=== PATIENT | male | born 1955 | race African-American/Black ===

== ENCOUNTER 2022-11-28 15:01 | Emergency (ER) | payer MEDICARE, SELFPAY ==
[2022-11-28 16:03] VITALS: BP 149/94; PULSE 97; RESP 16; TEMP 37; O2SAT 97
[2022-11-28 16:15] LABS: Glucose Point of Care 425 mg/dl (65-105)
[2022-11-28 16:23] LABS: Fractional Inspired Oxygen 21 %; HCO3 VBG 21.3 mEq/l (24.0-30.0); PCO2 VBG 35.3 mmHg (42.0-48.0); PO2 VBG 41.7 mmHg (35.0-45.0); pH VBG 7.399 (7.300-7.400)
[2022-11-28 16:40] LABS: Basophils Absolute Auto 0.1 K/mm3 (0.0-0.1); Basophils Percent Auto 0.7 % (0.2-1.2); Eosinophils Percent Auto 0.6 % (0-4.4); Hematocrit 49.5 % (42.0-52.0); Hemoglobin 16.5 g/dL (14.0-18.0); Immature Granulocyte Absolute 0.03 K/mm3 (0.00-0.031); Immature Granulocyte Percent A 0.4 % (0-0.5); Lymphocytes Absolute Auto 1.89 K/mm3 (0.9-3.2); Lymphocytes Percent Auto 27.8 % (18.3-44.2); Mean Corpuscular HGB Conc 33.3 g/dl (32-36); Mean Corpuscular Hemoglobin 28.5 pg (26-34); Mean Corpuscular Volume 85.5 fl (80-100); Monocytes Absolute Auto 0.7 K/mm3 (0.1-0.6); Monocytes Percent Auto 10.6 % (2.6-8.5); Neutrophils Absolute Auto 4.1 K/mm3 (1.3-6.7); Neutrophils Percent Auto 59.9 % (45.5-73.1); Platelet Count Result 268 k/mm3 (150-375); Red Blood Count 5.79 M/mm3 (4.6-6.20); Red Cell Distribution Width 13.3 % (11.5-14.5); White Blood Count 6.8 K/mm3 (4.5-10.0)
[2022-11-28 16:44] LABS: Alanine Aminotransferase 40 U/L (6-50); Albumin Level 4.6 g/dL (3.5-5.1); Alkaline Phosphatase 103 U/L (38-126); Anion Gap 12 mmol/L (8-16); Aspartate Amino Transferase 28 U/L (17-59); Bilirubin,Total 0.8 mg/dL (0.2-1.3); Blood Urea Nitrogen 16 mg/dL (9-20); Calcium 9.2 mg/dL (8.4-10.2); Carbon Dioxide 21 mmol/L (22-30); Chloride 100 mmol/L (98-107); Estimated CRCL calculation 108 ml/min; Estimated Glomerular Filt Rate > 60; Glucose 402 mg/dL (65-110); Magnesium 2.1 mg/dL (1.6-2.3); Phosphorus 3.2 mg/dL (2.5-4.5); Sodium 133 mmol/L (137-145)
[2022-11-28 16:51] LABS: Beta-Hydroxybutyrate/Acetoacetate 2.59 mmol/L (0.02-0.27)
[2022-11-28 17:44] LABS: Add Urine Microscopic? YES; Appearance Urine Clear (Clear); Bilirubin Urine Negative (Negative); Blood Urine Negative (Negative); Color Urine Yellow (Yellow); Glucose Urine UA 3+ mg/dL (Negative); Ketones Urine 2+ mg/dL (Negative); Leukocyte Esterase Ur Negative LEU/UL (Negative); Nitrate Urine Negative (Negative); Protein Urine Negative (Negative); Specific Grav Ur 1.025 (1.001-1.035); Urobilinogen Urine 0.2 mg/dL (<2.0); pH Urine 5.5 (5.0-9.0)
[2022-11-28 17:54] LABS: Mucus Urine Rare /lpf; RBC Urine 0-2 /hpf (0-2); Squamous Epithelial Cell Urine Few /hpf (Few); WBC Urine 0-3 /hpf
[2022-11-28 18:22] VITALS: BP 130/95; PULSE 93; RESP 20; TEMP 36.6; O2SAT 96
[2022-11-28 19:17] VITALS: BP 126/91; PULSE 94; RESP 15; O2SAT 96
[2022-11-28] MEDS: SODIUM CHLORIDE 0.9% IV 2,000 ML 999 ML IV CONT (20:11)
--- NOTE | 2022-11-28 20:11 | ED.RECABL ---
HPI - Recheck/Abnormal Lab/Rx General Chief Complaint: Recheck/Abnormal Lab/Rx Stated Complaint: increased blood sugar Time Seen by Provider: 11/28/22 19:19 History of Present Illness HPI narrative: This is a 66-year-old gentleman with past medical history of hypertension, sent in from his primary care doctor's office for a blood glucose in the 500s. The patient states over the past several weeks, he is noted generalized fatigue with increased urination. He denies fevers, chills, focal weakness, chest pain or shortness of breath. He states he had plan for starting injectable medications but was not yet started Related Data Allergies Allergy/AdvReac Type Severity Reaction Status Date / Time No Known Allergies Allergy Mild Unverified 07/12/19 07:38 Review of Systems Review of Systems: CONSTITUTIONAL: Fatigue denies fever, chills, or sweats. EYES: Intermittent blurred vision denies visual changes, redness, or discharge. ENT: Denies rhinorrhea, congestion, sore throat, or otalgia. CARDIOVASCULAR: Denies chest pain, palpitations, or edema. RESPIRATORY: Denies cough or dyspnea. GASTROINTESTINAL: Denies abdominal pain, nausea, vomiting, or diarrhea. GENITOURINARY: Denies dysuria or hematuria. SKIN: Denies rash or itching. MUSCULOSKELETAL: Denies back pain, joint pain, or myalgia. NEUROLOGIC: Denies headache, numbness, dizziness, or weakness. PSYCHIATRIC: Denies anxiety or depression. [facility] Past Medical History Medical History (Updated 11/29/22 @ 00:01 by Suellen Llanos) Hypertension Social History Social History (Updated 11/28/22 @ 20:13 by Ponce Matias MD) Smoking status: Never smoker Alcohol intake: never Substance use: never Exam Narrative: GENERAL: Well-appearing, well-nourished, and in no acute distress. HEAD: Normocephalic, atraumatic. EYES: PERRLA and EOMI. ENT: Nares clear, no rhinorrhea or epistaxis. Mucous membranes moist. Oropharynx without tonsillar hypertrophy exudate or other lesions. NECK: Supple. No adenopathy or masses. No carotid bruits or JVD CHEST: Clear to auscultation. No respiratory distress. No wheezes rales or rhonchi HEART: Regular rate and rhythm. No murmur heard. Normal peripheral pulses. ABDOMEN: Soft, nontender, nondistended, normal active bowel sounds. EXTREMITIES: Normal range of motion. No edema. SKIN: Warm, dry, no rash. NEURO: No focal deficits. Alert and oriented x3. PSYCH: Normal mood and affect. Course Course Emergency Course: 20:00 - Discussed patient with his primary care doctor, Dr. Chung who agrees with IV fluids, possible IV insulin and discharged with 10 days of oral medications. 21:41 -repeat fingerstick glucose decreased to 313 after 1 L of fluids. Will give a second and discharged with metformin. Discussed findings and recommendations with the patient as well as return emergent cautions including signs/symptoms of DKA and hypoglycemia. Patient voiced understanding and is comfortable with the plan. All questions answered to his satisfaction Vital Signs Vital signs: Vital Signs Temperature 98.6 F 11/28/22 16:03 Pulse Rate 97 11/28/22 16:03 Respiratory Rate 16 11/28/22 16:03 Blood Pressure 149/94 H 11/28/22 16:03 Pulse Oximetry 97 11/28/22 16:03 Temperature 97.9 F 11/28/22 18:22 Pulse Rate 86 11/28/22 22:25 Respiratory Rate 16 11/28/22 22:25 Blood Pressure 139/106 H 11/28/22 22:25 Pulse Oximetry 97 11/28/22 22:25 Oxygen Delivery Room Air 11/28/22 19:17 MDM - Recheck/Abnormal Lab/Rx MDM Narrative Medical decision making narrative: Plan: Labs, IV fluids, reassess Differential Diagnosis Differential diagnosis: Likely other (Hyperglycemia, DKA, UTI, metabolic abnormality, other) Lab Data 11/28/22 16:13 11/28/22 16:13 Labs: Lab Results 11/28/22 11/28/22 11/28/22 Range/Units 16:08 16:13 16:13 WBC 6.8 (4.5-10.0) K/mm3 RBC 5.79 (4.6-6.20) M/mm3 Hgb 16.5 (
[2022-11-28 20:13] VITALS: BP 143/106; PULSE 87; RESP 19; O2SAT 96
[2022-11-28 21:21] LABS: Glucose Point of Care 313 mg/dl (65-105)
[2022-11-28 22:11] LABS: Glucose Point of Care 298 mg/dl (65-105)
[2022-11-28 22:25] VITALS: BP 139/106; PULSE 86; RESP 16; O2SAT 97
== END 2022-11-28 22:25 | disposition home or self-care (01) ==
PROVIDERS: Emergency Medicine; Emergency Provider Preventive Medicine Aerospace Medicine; PCP Internal Medicine
DX: E11.65 Type 2 diabetes mellitus with hyperglycemia (principal)
CPT/HCPCS: 36415; 80053; 81001; 82010; 82803; 82948; 83735; 84100; 85025; 96360; 96361; 99283; J7030

== ENCOUNTER 2024-06-29 09:03 | Outpatient (CLI) | payer MEDICARE, SELFPAY ==
--- NOTE | 2024-07-08 20:31 | WPDHOMESLEEP ---
Sleep Study - Home Unattended Date of Study: 06/29/24 Ordering Provider: Hung Chung, Interpreting Provider: Alexa Graff MD Home Sleep Study Type: Watch PAT Height: 1.8 m Weight: 127.913 kg Body Mass Index: 39.3 Neck Circumference (inches): 18.5 [place]urn: 5 Reason for Sleep Study Snoring, non-refreshing sleep, daytime fatigue and excessive daytime sleepiness Sleep History Regino Stephenson is a 68-year old man with hypertension, hyperlipidemia, and diabetes; he snores loudly according to his . He falls asleep easily during the day. He has no anxiety or depression. He has moderately difficulty falling asleep and severe difficulty staying asleep. He wakes up too early in the morning. He is very dissatisfied with his current sleep pattern. His excessive daytime sleepiness interferes with his daytime functioning. He worries somewhat about his poor quality sleep. He is a nonsmoker, drinks 1 glass of alcohol 1 or 2 nights out of the week. He consumes 1-2 caffeinated beverages a day. He is tired, fatigued, and sleepy during the day. His sleep is not refreshing and he is tired when he wakes up. He does not feel drowsy while driving although he does have the urge to fall asleep during the day. He does not have uncomfortable feelings in his legs or the urge to move his legs in the evening. Normal bedtime is 11:30 p.m., falls asleep within 30 minutes, spends 9 hours in bed but only 5-1/2 hours of sleep. On weekends bedtime is the same, 11:30 p.m. with a 30 minute sleep latency. He also spends 9 hours in bed and about 6 hours sleeping. He does not nap. His sleep is never restorative. He often has 3 or more nighttime awakenings to go to the bathroom. [facility] Past Medical History Medical History (Updated 07/08/24 @ 21:26 by Alexa Graff MD) Hyperlipidemia Hypertension Type 2 diabetes mellitus with morbid obesity Surgical History Surgical History (Updated 07/08/24 @ 21:21 by Alexa Graff MD) History of hernia repair Family History Family History (Updated 07/08/24 @ 21:28 by Alexa Graff MD) Sibling Diabetes mellitus Kidney disorder Social History Social History (Updated 07/08/24 @ 21:20 by Alexa Graff MD) Smoking status: Never smoker Alcohol intake: current Alcohol use details: 1-2 per week Substance use: never Medications Home Medications Medication Instructions Recorded Confirmed Type blood-glucose meter #1 ea 11/28/22 Rx metformin 500 mg tablet 500 mg PO BID #20 tabs 11/28/22 Rx Medications: Medication list from his office appointment 06/07/2024 Amlodipine 10 mg benazepril 40 mg daily Atorvastatin 10 mg daily Coreg 3.125 mg b.i.d. Hydrochlorothiazide 25 mg b.i.d. Metformin a 1000 mg b.i.d. Ozempic 0.25 mg or 0.5mg sub-cutaneous injector Testosterone cypionate 200 mg/mLl intramuscular, 300 mg every 2 weeks Sleep Procedure The sleep study was completed using SalsifyT a technically adequate device with seven channels: peripheral arterial tone, actigraphy, body position, snore, respiratory movement, pulse oximetry, sleep staging, and heart rate. Prior to using the device, the patient received verbal and written instructions for its application and was provided with the help desk phone number for additional telephonic instruction with 24-hour availability of qualified personnel to answer questions. Sleep Architecture The total recording time is 7 hrs, 47 min. The total sleep time is 7 hrs, 3 min. Sleep latency is 17 minutes. REM latency is 58 minutes. The patient had 18 episodes of waking. Sleep architecture shows 6.0% deep sleep, 79.3% light sleep, and 14.6% stage REM. The patient spent 10.7% of total sleep time in the supine position. Sleep efficiency was 90.58. Respiratory Analysis The overall AHI (pAHI 4%:) is 70.7. The central AHI is 25.6. The AHI was 70.8 in NREM and 70.2 in REM sleep. The AHI was 67.4 in Supine and 71.1 in Non-supine sleep. Percent of Miriam
[2024-07-08 21:12] VITALS: BMI 39.3
== END 2024-07-01 14:31 | disposition home or self-care (01) ==
PROVIDERS: PCP Internal Medicine; Visit Provider Internal Medicine
DX: G47.9 Sleep disorder, unspecified (principal); G47.39 Other sleep apnea
CPT/HCPCS: 95800

== ENCOUNTER 2024-07-22 08:39 | Outpatient (CLI) | payer MEDICARE, SELFPAY ==
--- NOTE | 2024-08-18 15:55 | WPDSLEEPSTUD ---
Sleep Study Date of Study: 07/22/24 Ordering Provider: Hung Chung, Interpreting Physician: Nury Serrato DO Sleep Study Type: CPAP Titration Height: 21.64 m Weight: 127.913 kg Body Mass Index: 0.2 Neck Circumference (inches): 18.5 Keeler: 5 Reason for Sleep Study WatchPAT home sleep test on 06/29/2024 showed an overall AHI of 70.7, ALO of 25.6 and DRIP MOLDER 29.5% of the night. Sleep History Regino Stephenson is a 68-year old man with hypertension, hyperlipidemia, and diabetes; he snores loudly according to his . He falls asleep easily during the day. He has no anxiety or depression. He has moderately difficulty falling asleep and severe difficulty staying asleep. He wakes up too early in the morning. He is very dissatisfied with his current sleep pattern. His excessive daytime sleepiness interferes with his daytime functioning. He worries somewhat about his poor quality sleep. He is a nonsmoker, drinks 1 glass of alcohol 1 or 2 nights out of the week. He consumes 1-2 caffeinated beverages a day. He is tired, fatigued, and sleepy during the day. His sleep is not refreshing and he is tired when he wakes up. He does not feel drowsy while driving although he does have the urge to fall asleep during the day. He does not have uncomfortable feelings in his legs or the urge to move his legs in the evening. Normal bedtime is 11:30 p.m., falls asleep within 30 minutes, spends 9 hours in bed but only 5-1/2 hours of sleep. On weekends bedtime is the same, 11:30 p.m. with a 30 minute sleep latency. He also spends 9 hours in bed and about 6 hours sleeping. He does not nap. His sleep is never restorative. He often has 3 or more nighttime awakenings to go to the bathroom. [facility] Past Medical History Medical History Hyperlipidemia Hypertension Type 2 diabetes mellitus with morbid obesity Surgical History Surgical History History of hernia repair Family History Family History Sibling Diabetes mellitus Kidney disorder Social History Social History Smoking status: Never smoker Alcohol intake: current Alcohol use details: 1-2 per week Substance use: never Spiritual care concerns: No Medications Home Medications Medication Instructions Recorded Confirmed Type blood-glucose meter #1 ea 11/28/22 Rx metformin 500 mg tablet 500 mg PO BID #20 tabs 11/28/22 Rx Sleep Procedure A full night polysomnogram using the BucketFeet multi-channel system recorded the standard physiologic parameters including EEG, EOG, submentalis EMG, anterior tibialis EMG, EKG, body position, nasal and oral airflow using PAP device flow signal.? Respiratory parameters of chest and abdominal movements were recorded with Respiratory Inductance Plethysmography belts. Oxygen saturation was recorded by pulse oximetry. Video monitoring was also performed. Sleep stages, periodic limb movements, and EEG arousals were scored in 30 second epochs according to the criteria of the AASM Scoring Manual. The Apnea-Hypopnea Index was calculated using CMS guidelines for definition of hypopnea with 4% O2 desaturations while scoring respiratory events. Sleep Architecture The total recording time was 514.2 minutes.? The total sleep time was 214.0 minutes. Sleep latency was 26.5 minutes. REM latency was 81.0 minutes. Sleep efficiency was 41.6%. The patient had 43 awakenings for an awakening index of 12.1. Wake after Sleep Onset time was 274.0 minutes. The patient spent 31.5 minutes, 14.7% of total sleep time in Stage N1. The patient spent 153.5 minutes, 71.7% in Stage N2. The patient spent 0.0 minutes, 0.0% in Stage N3. The patient spent 29.0 minutes, 13.6% in Stage REM. Respiratory Analysis The patient had 10 hypopneas, 5
== END 2024-07-23 07:29 | disposition home or self-care (01) ==
LOC: ANHCSM 08:40
PROVIDERS: PCP Internal Medicine; Visit Provider Internal Medicine
DX: G47.33 Obstructive sleep apnea (adult) (pediatric) (principal)
CPT/HCPCS: 95811

== ENCOUNTER 2024-09-16 08:19 | Outpatient (CLI) | payer MEDICARE, SELFPAY ==
--- NOTE | 2024-09-16 | ECHO_ITS ---
Patient Info Name: Regino Stephenson Age: 68 years : 1955 Gender: Male Ht: 71 in Wt: 290 lbs BSA: 2.62 m2 HR: 59 bpm BP: 148 / 108 mmHg Heart Rhythm: Sinus Rhythm Technical Quality: Fair Exam Date: 09/16/2024 9:22 AM Exam Location: Echo Lab Patient Status: Outpatient Admit Date: 09/16/2024 Staff Ordering Physician: SheldonHung MD Test Car Driver: Turner Boateng RDCS Attending Provider: CarissaHung MD Exam Type: CA echo doppler color flow Study Info Indications I10 - Essential (primary) hypertension Complete two-dimensional, color flow and Doppler transthoracic echocardiogram is performed. Summary 1. Left ventricular chamber dimension is normal. 2. Left ventricular systolic function is normal, estimated at 60-65%. 3. There is mildly increased left ventricular wall thickness. 4. The left ventricular diastolic function is grade I diastolic dysfunction. 5. Right ventricular systolic function is normal. 6. There is mild mitral valve regurgitation. 7. There is mild tricuspid valve regurgitation. Left Ventricle Left ventricular chamber dimension is normal. Left ventricular systolic function is normal, estimated at 60-65%. There is mildly increased left ventricular wall thickness. The left ventricular diastolic function is grade I diastolic dysfunction. Right Ventricle Right ventricular chamber dimension is normal. Right ventricular systolic function is normal. Left Atria Left atrial chamber dimension is normal. Right Atria Right atrial chamber dimension is normal. Atrial Septum Intact interatrial septum visualized by color flow imaging. Aortic Valve The aortic valve is trileaflet. There is mild aortic valve sclerosis. There is no aortic valve stenosis. There is no aortic valve regurgitation. Pulmonic Valve The pulmonic valve is not well visualized. There is no pulmonic regurgitation. Mitral Valve There is mild mitral valve regurgitation. Tricuspid Valve There is mild tricuspid valve regurgitation. Pericardium/Pleural The pericardium appears epicardial fat pad. There is no pericardial effusion. Inferior Vena Cava Normal inferior vena cava with >50% collapse upon inspiration consistent with normal right atrial pressure, 3 mmHg. Aorta The aortic root size at the sinus of Valsalva is normal. Left Ventricular Outflow Tract Name Value Normal LVOT 2D LVOT Diameter 2.1 cm LVOT Doppler LVOT Peak Gradient 5 mmHg LVOT Mean Gradient 2 mmHg LVOT VTI 19 cm LVOT VTI/AV VTI Ratio 1.1 LVOT Stroke Volume 66 ml LVOT CO 4.8 l/min LVOT CI 1.8 l/min/m2 Pulmonic Valve Name Value Normal PV Doppler PV Peak Gradient 3 mmHg Mitral Valve Name Value Normal MV Doppler MV Decel [place] 232 cm/s2 MV PHT 69 ms MV Area (PHT) 3.2 cm2 4.0-5.0 MV Diastolic Function MV E Peak Velocity 55 cm/s MV A Peak Velocity 86 cm/s MV E/A 0.6 MV Decel Time 237 ms Tricuspid Valve Name Value Normal TV Regurgitation Doppler TR Peak Velocity 238 cm/s TR Peak Gradient 23 mmHg Estimated PAP/RSVP RA Pressure 3 mmHg <=5 PA Systolic Pressure 26 mmHg <36 RV Systolic Pressure 26 mmHg <36 Aorta Name Value Normal Ascending Aorta Ao Root Diameter (MM) 3.6 cm Ao Root Diam Index (MM) 1.4 cm/m2 Aortic Valve Name Value Normal AV Doppler AV Peak Velocity 104 cm/s AV Peak Gradient 4 mmHg AV Mean Gradient 2 mmHg AV VTI 17 cm AV Area (Cont Eq VTI) 3.8 cm2 >=3.0 AV Area (Cont Eq Jean Paul) 3.8 cm2 AV Regurgitation 2D LVOT Area 3.6 cm2 Ventricles Name Value Normal LV Dimensions 2D/MM IVS Diastolic Thickness (2D) 1.1 cm 0.6-1.0 IVS Diastole Thickness (MM) 1.0 cm 0.6-1.0 LVID Diastole (2D) 4.8 cm 4.2-5.8 LVID Diastole (MM) 5.3 cm 4.2-5.8 LVIW Diastolic Thickness (2D) 1.0 cm 0.6-1.0 LVIW Diastolic Thickness (MM) 1.1 cm 0.6-1.0 LVID Systole (2D) 2.8 cm 2.5-4.0 LVID Systole (MM) 3.3 cm 2.5-4.0 LVOT Diameter 2.1 cm LV Mass (2D Cubed) 181.38 g 88.00-224.00 LV Mass Index (2D Cubed) 69 g/m2 49-115 Relative Wall Thickness (2D) 0.44 LV Mass (MM Cubed) 216.34 g 88.00-224.00 LV Mass Index (MM Cubed) 82 g/m2 49-115 Relative Wall Thickness (MM) 0.42 LV Fractional Shortening/Ejection Fraction 2D/MM LV Fractional Shortening (2D) 41 % 25-43 LV Fractional Shortening (MM) 37 % 25-43 LV EF (MM Teicholz) 67 % 52-72 LV EF (2D Teicholz) 72 % 52-72 LV Diastolic Volume (4C MOD) 93 ml LV EF (4C MOD) 73 % LV Diastolic Volume (2C MOD) 90 ml LV EF (2C MOD) 72 % LV Diastolic Volume (BP MOD) 92 ml 62-150 LV Diastolic Volume Index (BP MOD) 35 ml/m2 34-74 LV Systolic Volume (BP MOD) 25 ml 21-61 LV Systolic Volume Index (BP MOD) 10 ml/m2 11-31 LV EF (BP MOD) 73 % 52-72 LV Diastolic Length (4C) 9.6 cm LV Systolic Length (4C) 8.2 cm LV Stroke Volume (4C MOD) 68 ml Atria Name Value Normal LA Dimensions LA Dimension (MM) 4.2 cm 3.0-4.1 LA Volume (4C A-L) 39 ml LA Volume (BP A-L) 54 ml RA Dimensions RA Area (4C) 14.0 cm2 <=18.0 Report Signatures
== END 2024-09-16 08:20 | disposition home or self-care (01) ==
LOC: ANHCARD 08:21
PROVIDERS: PCP Internal Medicine; Visit Provider Internal Medicine
DX: I11.9 Hypertensive heart disease without heart failure (principal); I08.1 Rheumatic disorders of both mitral and tricuspid valves
CPT/HCPCS: 93306

== ENCOUNTER 2024-11-02 09:30 | Outpatient (RCR) | payer MEDICARE, SELFPAY ==
[2024-08-10 11:00] VITALS: BMI 40.3
[2024-08-10 11:26] VITALS: BMI 40.3
[2024-09-07 09:30] VITALS: BMI 40.3
[2024-10-06 09:30] VITALS: BMI 39.9
[2024-10-06 09:31] VITALS: BMI 39.9
[2024-11-02 09:35] VITALS: BMI 39.6
== END 2024-11-08 09:23 | disposition home or self-care (01) ==
LOC: ANHDMC 09:30
PROVIDERS: PCP Internal Medicine; Visit Provider Internal Medicine
DX: E11.9 Type 2 diabetes mellitus without complications (principal); Z71.3 Dietary counseling and surveillance
CPT/HCPCS: 97802; 97803

== ENCOUNTER 2025-01-17 14:36 | Outpatient (CLI) | payer MEDICARE, SELFPAY ==
--- NOTE | ~2025-01-17 | XR_ITS ---
Lumbosacral Spine: AP and lateral views Clinical History: Pain Findings: The normal lordotic curve is maintained. No fracture or subluxation evident. There is moder ate degenerative disc change overall, worst at L2-L3. There is moderate facet arthropathy overall, wo rst from L3 through S1. The sacroiliac joints are normally outlined. Impression: Moderate degenerative spondylosis, as above. Reviewed, dictated and finalized at location . 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
== END 2025-01-17 14:37 | disposition home or self-care (01) ==
LOC: MICIMG 14:40
PROVIDERS: PCP Internal Medicine; Visit Provider Internal Medicine
DX: M54.50 Low back pain, unspecified (principal); M47.896 Other spondylosis, lumbar region
CPT/HCPCS: 72100

== ENCOUNTER 2025-02-11 13:39 | Outpatient (CLI) | payer MEDICARE, SELFPAY ==
--- NOTE | ~2025-02-11 | MR_ITS ---
EXAMINATION: MR lumbar spine wo con DATE: 02/11/2025 14:13 INDICATION: Bilateral leg pain TECHNIQUE: Magnetic resonance imaging (MRI) of the lumbar spine was performed without intravenous con trast. Sequences included sagittal T2-weighted FSE, sagittal T2-weighted FS FSE, sagittal T1-weighted FSE, and axial T2-weighted FSE. COMPARISON: None FINDINGS: 8 degrees lumbar levocurvature. 2 mm retrolisthesis L2 on L3 and L3 on L4. Chronic mild likely physio logic anterior wedging at T12. Lumbar vertebral body heights are are normal. There are small Schmorl' s nodes along several of the endplates in the lower thoracic and mid to upper lumbar spine. Moderate to severe right-sided prominent disc height loss at L2-L3 mild to moderate disc height loss at T11-T1 2, T12-L1 and L3-L4 through L5-S1. Mild disc height loss at L1-L2. There is epidural lipomatosis in t he lower lumbar spine. The conus medullaris terminates at L1. There is normal signal in the caudal sp inal cord. Paravertebral soft tissues are unremarkable. The following disc levels are specifically di scussed: T12-L1: Disc is mildly bulging. There is mild right and moderate left facet joint osteoarthritis. The re is mild left neural foraminal stenosis. There is mild central canal stenosis. L1-L2: The disc does not extend beyond the endplate margin. There is mild right and mild to moderate left facet joint osteoarthritis. There is no neural foraminal stenosis. There is no central canal lexy nosis. L2-L3: Disc is bulging. There is mild left and moderate right facet joint osteoarthritis. There is mi ld to moderate left and moderate right neural foraminal stenosis. There is mild central canal stenosi s. L3-L4: Disc is bulging with superimposed left paracentral annular fissure. There is hypertrophy of th e ligamentum flavum. There is mild to moderate bilateral facet joint osteoarthritis. There is moderat e bilateral neural foraminal stenosis. There is severe central canal stenosis with proper appears to be nerve roots cephalad to the stenosis and lax appearance to the more caudal nerve roots. L4-L5: Disc is bulging. There is hypertrophy of the ligamentum flavum. There is moderate right and se giovany left facet joint osteoarthritis. There is mild bilateral neural foraminal stenosis. There is mod erate central canal stenosis. L5-S1: Disc is bulging with annular fissure. There is severe bilateral facet joint osteoarthritis. Th ere is moderate right and mild to moderate left neural foraminal stenosis. There is mild central adriano l stenosis. IMPRESSION: 1. A degree lumbar levocurvature with moderate to severe spondylosis most notable for severe central canal stenosis at L3-L4. Reviewed, dictated and finalized at location B. IMPRESSION: 1. A degree lumbar levocurvature with moderate to severe spondylosis most notab le for severe central canal stenosis at L3-L4.
== END 2025-02-11 13:40 | disposition home or self-care (01) ==
LOC: MICIMG 13:40
PROVIDERS: PCP Internal Medicine; Visit Provider Internal Medicine
DX: M48.061 Spinal stenosis, lumbar region without neurogenic claudication (principal); M43.8X6 Other specified deforming dorsopathies, lumbar region; M43.06 Spondylolysis, lumbar region
CPT/HCPCS: 72148

== ENCOUNTER 2025-03-15 10:05 | Outpatient (CLI) | payer MEDICARE, SELFPAY ==
--- OUTSIDE RECORDS SUMMARY | 2025-03-15 11:26 | XMS_ITS | Data Portability ---
Author Organization [facility] [place] Address [address] [place] [address] Care Team Providers Care Associate Entertainment Editor Name Role Phone ALMA CHUNG Primary Care Provider [phone] Assessment Encounter Date Assessment Date Assessment LastModified by Organization Details LastModified Time 01/27/2025 01/27/2025 MRI lumbar spine EMG NCS legs etiology not clear follow up with ks March 21 [email or web address] Not available 01/30/2025 16:54:30 Plan of Treatment Reminders Order Date Submit Date Provider Last Modified By Organization Details Last Modified Time Details Appointments ANY 15 2024 10:30A M Alma Chung MD Not available Not available Not available Lab urinalysi s complete, reflex culture 2024 025 [facility], [address], [place], [address], 02/16/2025 15:13:38 culture, urine + sensitivi ty 2024 025 [facility], [address], [place], [address], 03/15/2025 09:49:08 Referral None recorded. Procedures nerve conductio n study/EMG , lower extremity (PROC) 2024 025 [facility] (Cardiology & Emg), [address] [facility] [address], [place], [address], 02/24/2025 12:15:36 Surgeries None recorded. Imaging MRI, lumbar spine, w/o contrast 2024 025 [facility], [address] [address], [place], [address], 02/14/2025 10:54:35 Medication Orders testoster one cypionate 200 mg/mL intramusc ular oil [address], [address] [place], [address], 03/07/2025 13:44:52 testoster one cypionate 200 mg/mL intramusc ular oil 2024 025 [place] [address] [id number], [address] [place] [address], [address], 02/21/2025 17:54:10 testoster one cypionate 200 mg/mL intramusc ular oil 2024 025 [facility], [address] [place] [address], [address], 02/07/2025 11:30:00 testoster one cypionate 200 mg/mL intramusc ular oil [address], [address] [place] [address], [address], 01/24/2025 12:53:07 testoster one cypionate 200 mg/mL intramusc ular oil 2024 025 [email or web address] Not available 01/24/2025 13:59:36 Patient TargetsNo targets recorded. Patient Instructions Encounter Date Encounter Id Patient Instructions Last Modified By Organization Details Last Modified Time 01/27/2025 [id number] A healthy lifestyle: care instructions [email or web address] Not available 01/27/2025 11:16:00 Reason for Referral None Reported. Results Created Date Observation Date Name Description Value Unit Range Abnormal Flag Note LastModifiedBy Organization Detail LastModifiedTime 01/18/2001/17/2025 XR, lumba r spine No observ ation record ed. [facility] [address], [place], [address], 02/02/2025 13:20:11 02/15/20 25 02/11/2025 MRI, lumba r spine , w/o contr ast No observ ation record ed. [facility] [address], [place], [address], 02/21/2025 11:14:10 02/15/20 25 02/11/2025 MRI, lumba r spine , w/o contr ast No observ ation record ed. [facility] [address], [place], [address], 02/16/2025 12:40:59 02/18/20 25 02/07/2025 diabe tic foot exam* No observ ation record ed. [place] Nikolay Jonathan DP [address], [place], [address], 02/20/2025 21:35:36 Result Notes None recorded. Problems Name Problem SNOMED Code Status Onset Date Resolution Date Notes Provider Name and Address Organization Details Recorded Time Type 2 diabetes mellitus 28464391 Active 2023 Alma Chung MD Attn: Dara baeza,[address] [facility], [place], [address], [facility] 4 22:21:20 Essential hypertensio n 45613041 Active 2023 Alma Chung MD Attn: Dara baeza,[address] [facility], [place], [address], [place] [facility] 4 22:21:21 Hyperlipide tanisha 74629773 Active 2023 Alma Chung MD Attn: Dara baeza,[address] [facility], [place], [address], [facility] 4 22:21:25 Fatigue 90833437 Active 2023 Alma Chung MD Attn: Dara baeza,[address], [place], [address], [place] - [facility] 4 22:21:27 Testosteron e level below reference range 898749205 Active 2023 Ese Hutchins [place] null, [place] [facility] 4 14:28:03 Obstructive sleep apnea syndrome 46059371 Active 2023 Alma Chung MD Attn: Dara baeza,[address], [place], [address], [place] [facility] 4 15:32:35 Low back pain 330893655 Active 2024 Ese Hutchins [place], [place] [facility] 5 11:16:58 Pain in bilateral legs 4381409270212 9108 Active 2024 Ese Hutchins [place], [place] [facility] 5 10:57:26 Dysuria 59908827 Active 2024 Ese Hutchins [place], [place] [facility] 5 10:57:45 Problem Notes None recorded. Procedures Surgical History Date Name Laterality Status Provider Name and Address Organization Details Recorded Time Hernia Repair completed Frantz Floyd [place] - [facility] 02/06/2024 12:32:13 Imaging Results Imaging Date Name Status LastModified by [facility] Details LastModified Time 01/17/2025 XR, lumbar spine completed [facility] [address], [place], [address], 02/02/2025 13:20:11 02/11/2025 MRI, lumbar spine, w/o contrast completed [facility] [address], [place], [address], 02/21/2025 11:14:10 02/11/2025 MRI, lumbar spine, w/o contrast completed [facility] [address], [place], [address], 02/16/2025 12:40:59 02/07/2025 diabetic foot exam* completed ASIM Jonesnarendra Castillo Jr DPM [address], [place], [address], 02/20/2025 21:35:36 Procedure Notes None recorded. Medical Equipment None Reported. Allergies Allergen ID Allergen Name Allergen Category Reaction Reaction Severity Criticality Documentation Date Start Date Code Code System Note Provider Name and Address Organization Details Recorded Time 363695 levofloxa justin medicatio n other Not available Not available 02/06/2024 79712 RxNorm tendo nitis Not Available Not Available Not Available 123450 Levaquin medicatio n Not available Not available Not available 01/06/2025 34759 2 RxNorm Not Available Not Available Not Available Medications Name Sig Start Date Stop Date Status Note LastModified by Organization Details LastModified Time BD Luer-Yenifer Syringe 3 mL 23 x 1 USE DIRECTED TO INJECT TESTOSTE NIKKI EVERY OTHER WEEK 2023 active Not Available Not Available Not Avai lable carvedilo l 12.5 mg tablet TAKE 1 TABLET BY MOUTH TWICE A DAY active Not Available Not Available No t Available atorvasta tin 10 mg tablet TAKE 1 TABLET BY MOUTH EVERY DAY active Not Available Not Available No t Available tizanidin e 4 mg tablet TAKE ONE TABLET BY MOUTH AT BEDTIME NEEDED FOR BACK/BUT TOCK PAIN 2024 active Not Available Not Available Not Avai lable carvedilo l 3.125 mg tablet TAKE 2 TABLETS IN THE MORNING AND 2 TABLETS AT BEDTIME 08/02 completed Dose increase d Not Available Not Available Not Available OneTouch Ultra Test strips USE 3 TIMES DAILY BEFORE MEALS 2024 active Not Available Not Available Not Avai lable metformin 1,000 mg tablet TAKE 1 TABLET BY MOUTH TWICE A DAY 2024 active Not Available Not Available Not Avai lable hydrochlo rothiazid e 25 mg tablet TAKE 1 TABLET BY MOUTH TWICE A DAY active Not Available Not Available No t Available testoster one cypionate 200 mg/mL intramusc ular oil INJECT 1.5ML (300 MG) EVERY 2 WEEKS BY INTRAMUS CULAR ROUTE. 04/14/ 2025 active Not Available Not Available Not Avai lable amlodipin e 10 mg-benaze pril 40 mg capsule TAKE 1 CAPSULE BY MOUTH EVERY DAY active Not Available Not Available No t Available Tresiba FlexTouch U-100 insulin 100 unit/mL (3 mL) subcutane ous pen INJECT SUBCUTAN EOUSLY 35 UNITS DAILY 2023 active Not Available Not Available Not Avai lable Dexcom G6 Sensor device USE DIRECTED TO TEST SUGAR DAILY. CHANGE EVERY 10 DAYS active Not Available Not Available No t Available Dexcom G6 Community Advocate USE DIRECTED TO CHECK SUGAR DAILY active Not Available Not Available No t Available OneTouch Delica Plus Lancet 30 gauge USE DIRECTED TO CHECK BLOOD SUGAR 3 TIMES DAILY active Not Available Not Available No t Available Ozempic 1 mg/dose (4 mg/3 mL) subcutane ous pen injector 10/04 completed Not Available Not Available Not Available Mounjaro 2.5 mg/0.5 mL subcutane ous pen injector 07/12 completed Not Available Not Available Not Available Ozempic 0.25 mg or 0.5 mg (2 mg/3 mL) subcutane ous pen injector INJECT 0.25MG SUBCUTAN EIOUSLY WEEKLY FOR 4WKS THEN GO TO 0.5MG WEEKLY FOR 4WKS 08/02 completed Dose increase d Not Available Not Available Not Available Vitals Date Recorded Body height Body mass index (BMI) Body weight Heart rate Oxygen saturation Oxygen saturation in Arterial blood by Pulse oximetry Systolic blood pressure Diastolic blood pressure Provider Name and Address Organization Details Last Updated DateTime 5 180.34 cm 37.6 kg/m2 974201. 86 g 77 /min 93 % 93 % 138 mm[Hg] 70 mm[Hg] Deidra Jones MA [place] - [facility] 5 10:34:17 Social History Question Answer Notes LastModified by Organizat ion Details LastModified Time Tobacco Smoking Status Never Smoker [place], [place] [facility] 02/06/2024 12:31:25 Do You Have An Advance Directive? Yes Information not available 08/02/2024 What Is Your Level Of Alcohol Consumption? Occasional Information not available 02/06/2024 Are You Blind Or Do You Have Difficulty Seeing? No Information not available 02/06/2024 What Is Your Level Of Caffeine Consumption? Moderate Coffee Information not available 08/02/2024 In The 14 Days Before Symptom Onset, Have You Had Close Contact With A Laboratory-confir med COVID-19 While That Case Was Ill? No Information not available 08/30/2024 In The 14 Days Before Symptom Onset, Have You Had Close Contact With A Person Who Is Under Investigation For COVID-19 While That Person Was Ill? No Information not available 08/30/2024 Have You Been To An Area Known To Be High Risk For COVID-19? No Information not available 08/30/2024 Are You Currently Employed? No Retired Information not available 08/02/2024 Are You Deaf Or Do You Have Serious Difficulty Hearing? No Ringing In Left Ear Information not available 08/02/2024 What Type Of Diet Are You Following? REGULAR Information not available 02/06/2024 What Is The Highest Grade Or Level Of School You Have Completed Or The Highest Degree You Have Received? [id number] Information not available 08/02/2024 Are There Any Guns Present In Your Home? No Information not available 02/06/2024 In The Past 7 Days, How Many Days Did You Exercise? 0 Information not available 08/02/2024 In The Past 7 Days, How Much Pain Have You [place]? Some Information not available 08/02/2024 In General, Would You Say You Health Is: Good Information not available 08/02/2024 How Would You Describe The Condition Of Your Mouth And Teeth- Including False Teeth Or Dentures? Good Information not available 08/02/2024 Each Night, How Many Hours Of Sleep Do You Get? 5 Information no t available 08/02/2024 Has Anyone Ever Told You That You Snore? No Information not available 08/02/2024 In The Past 7 Days, How Often Have You [place] Sleepy In The Daytime? Usually Information not available 08/02/2024 # Alcohol Drinks Per Week 0 Information not available 08/02/2024 What Was The Date Of Your Most Recent Tobacco Screening? 01/27/2025 [email or web address] Information not available 01/27/2025 What Is Your Relationship Status? Information not available 02/06/2024 Do You Use Your Seat Belt Or Car Seat Routinely? Yes Information not available 02/06/2024 Do You Have Smoke And Carbon Monoxide Detectors In Your Home? Yes Information not available 02/06/2024 Do You Feel Stressed (tense, Restless, Nervous, Or Anxious, Or Unable To Sleep At Night)? [id number] Information not available 08/02/2024 Do You Use Any Illicit Or Recreational Drugs? No Information not available 02/06/2024 Do You Use Sunscreen Routinely? No Information not available 02/06/2024 Has Tobacco Cessation Counseling Been Provided? No Information not available 02/06/2024 Do You Or Have You Ever Used Any Other Forms Of Tobacco Or Nicotine? No Information not available 02/06/2024 Sex: Male Functional Status Question Answer Note LastModified by Organization D etails LastModified Time Are you able to care for yourself? Yes Information n ot available 02/06/2024 What is your exercise level? None Information not available 02/06/2024 Mental Status None recorded. Family History Relationship Description Onset Age of this Age Resolved Age Notes LastModified by Organization Details LastModified Time Sister Diabetes mellitus [email or web address] Not available 01/22 12:30:25 Brother Diabetes mellitus [email or web address] Not available 01/22 12:30:25 Brother Kidney disease [email or web address] Not available 01/22 12:30:38 Medical History Condition Response Coronary Artery Disease N Other N High Blood Pressure Y Atrial Fibrillation N Kidney or Bladder Problems N Thyroid Problems N GI Problems N Depression N COPD N Blood Clots N Have you had a mammogram in the last yea r? N Skin Problems N Anemia N Heart Attack ([place]) N Anxiety Disorder N Diabetes Y Muscle, Joint, or Bone Problems N Seizures/Epilepsy N Have you had a colonoscopy in the last 1 0 years? Y Acid Reflux (GERD) N Cancer N Stroke N Asthma N Allergies N Have you had a PSA blood test in the las t year? Y High Cholesterol Y Hepatitis N Liver Disease N Headaches N Heart Failure N Osteoporosis N Immunizations Vaccine Type Date Status Note Provider Nam e and Address Organization Details Recorded Time Influenza, split virus, quadrivalent, preservative 8 completed Maria Luisa Quintanilla, RMA null, [place] - [facility] 05/31/2024 11:08:44 Influenza, split virus, quadrivalent, preservative 7 completed Maria Luisa Quintanilla RMA [place] [facility] 05/31/2024 11:08:44 Influenza, MDCK, quadrivalent, preservative 9 completed Maria Luisa Quintanilla, [place] [facility] 05/31/2024 11:08:44 COVID-19, mRNA, LNP-S, PF, 30 mcg/0.3 mL dose 1 completed Maria Luisa Quintanilla R[place] [facility] 05/31/2024 11:08:44 COVID-19, mRNA, LNP-S, PF, 30 mcg/0.3 mL dose 1 completed Maria Luisa Quintanilla R[place] [facility] 05/31/2024 11:08:44 COVID-19, mRNA, LNP-S, PF, 30 mcg/0.3 mL dose, cyndee-sucrose 2 completed Maria Luisa Quintanilla R[place] [facility] 05/31/2024 11:08:44 Influenza, split virus, trivalent, preservative 7 completed Maria Luisa Quintanilla R[place] [facility] 05/31/2024 11:08:44 Influenza, split virus, trivalent, PF 6 completed Maria Luisa Quintanilla [place] [facility] 05/31/2024 11:08:44 Td (adult), 2 Lf tetanus toxoid, preservative free, adsorbed 9 completed Maria Luisa Quintan[place] [facility] 05/31/2024 11:08:44 Hep B, adult 0 completed Maria Luisa Quintanilla [place] [facility] 05/31/2024 11:08:44 Hep B, adult 9 completed Maria Luisa Quintanilla, RMA null, [place] [facility] 05/31/2024 11:08:44 Hep B, adult 9 completed Maria Luisa Quintanilla, RMA [place] [facility] 05/31/2024 11:08:44 Hep A, adult 0 completed Maria Luisa Quintanilla RMA [place] [facility] 05/31/2024 11:08:44 Hep A, adult 9 completed Maria Luisa Quintanilla RMA [place] [facility] 05/31/2024 11:08:44 Influenza, split virus, quadrivalent, PF 2 completed Maria Luisa Quintanilla RMA [place], [place] [facility] 05/31/2024 11:08:44 Pneumococcal conjugate PCV20, polysaccharide XOP895 conjugate, adjuvant, PF 4 completed Alma Chung MD Attn: Accounting[address] [place], [address], [facility] 08/08/2024 17:40:03 Influenza, high-dose, trivalent, PF 4 completed Alma Chung MD Attn: Accounting[address] [place], [address], [facility] [place] 09/04/2024 15:25:11 Past Encounters Encounter ID Performer Location Encounter Start Date Encounter Closed Date Diagnosis/Indication Diagnosis SNOMED-CT Code Diagnosis ICD10 Code Diagnosis Note [id number] Alma Chung MD [facility] (Adult Med) [address] [place] [address] 02/06/2024 11:45:28 02/06/2024 13:12:37 Type 2 diabetes mellitus 06431650 E11.9 Essential hypertension 36380285 I10 Hyperlipidemia 43134350 E78.5 Fatigue 39451565 R53.83 Screening for malignant neoplasm of prostate 941047996 Z12.5 Obesity 736982276 E66.9 [id number] Frantz Floyd MA [facility] e - Mohan Rossi [address] [place] [address] 04/01/2024 10:02:35 04/01/2024 14:39:03 Testosterone level below reference range 826752538 R89.1 [id number] Ese Hutchins MA [facility] [place] [address] [place] [address] 04/15/2024 09:14:30 06/16/2024 20:52:51 Testosterone level below reference range 047404624 R89.1 [id number] Alma Chung MD [facility] [place] [address] [place] [address] 04/29/2024 10:57:30 06/01/2024 13:42:10 Testosterone level below reference range 357983730 R89.1 [id number] Frantz Floyd MA [facility] [place] [address] [place] [address] 05/13/2024 10:33:51 05/13/2024 11:07:51 Testosterone level below reference range 231960911 R89.1 [id number] Maria Luisa Quintanilla, [facility] [place] [address] [place] [address] 05/31/2024 10:37:45 05/31/2024 11:30:22 Testosterone level below reference range 568138946 R89.1 [id number] Alma Chung MD [facility] [place] [address] [place] [address] 06/07/2024 10:16:02 06/07/2024 11:22:20 Morbid obesity 391473910 E66.01 Essential hypertension 70112128 I10 Type 2 lakhwinder betes mellitus 54758748 E11.9 Sleep disorder 94964228 G47.9 [id number] Alma Chung MD [facility] [place] [address] [place] [address] 06/15/2024 10:29:00 06/15/2024 12:46:48 Male hypogonadism 30156189 E29.1 [id number] Meaghan Braga MA [facility] (Adult Med) [address] [place] [address] 06/25/2024 12:19:04 06/25/2024 13:07:02 Male hypogonadism 14733843 E29.1 [id number] Alma Chung MD [facility] [place] [address] [place] [address] 07/08/2024 14:03:31 07/08/2024 14:17:16 Male hypogonadism 55152161 E29.1 [id number] Alma Chung MD [facility] [place] [address] [place] [address] 07/12/2024 11:10:30 07/12/2024 12:55:22 Sleep disorder 47905818 G47.9 Essential hypertension 92247486 I10 Type 2 lakhwinder betes mellitus 32264823 E11.9 Hyperlipidemia 95753919 E78.5 [id number] Alma Chung MD [facility] [place] [address] [place] [address] 07/22/2024 10:45:00 07/22/2024 11:08:47 Testosterone level below reference range 759214433 R89.1 [id number] Alma Chung MD [facility] [place] [address] [place] [address] 08/02/2024 11:47:54 08/02/2024 13:15:04 Adult health examination 000696538 Z00.00 Health Risk Assessment collected and reviewed Type 2 lakhwinder betes mellitus 72864515 E11.9 Essential hypertension 66026025 I10 Immunization due 5697508 08 Z28.39 [id number] Salena Milian MA [facility] [place] [address] [place] [address] 08/05/2024 11:13:22 08/05/2024 11:48:22 Male hypogonadism 20850110 E29.1 [id number] Karen Luis MA [facility] [place] [address] [place] [address] 08/19/2024 11:12:11 08/19/2024 12:05:11 Male hypogonadism 03351148 E29.1 [id number] Alma Chung MD [facility] [place] [address] [place] [address] 08/30/2024 11:14:49 08/30/2024 12:11:16 Morbid obesity 130200875 E66.01 Essential hypertension 23501625 I10 Administra tion of influenza vaccine 11498752 Z23 [id number] Alma Chung MD [facility] [place] [address] [place] [address] 09/02/2024 14:02:43 09/02/2024 14:31:17 Male hypogonadism 08569538 E29.1 [id number] Karen Luis MA [facility] [place] [address] [place] [address] 09/20/2024 10:51:36 09/20/2024 11:05:03 Male hypogonadism 06737270 E29.1 [id number] Alma Chung MD [facility] [place] [address] [place] [address] 10/04/2024 11:56:50 10/04/2024 13:13:13 Body mass index 40+ - severely obese 691965665 Z68.41 Morbid obesity 599046452 E66.01 Male hypogonadism 898665 06 E29.1 Essential hypertension 79904107 I10 Hyperlipidemia 88380661 E78.5 Type 2 lakhwinder betes mellitus 59859519 E11.9 Obstructiv e sleep apnea syndrome 45422378 G47.33 Testostero ne level below reference range 099652320 R89.1 [id number] Salena Milian MA [facility] [place] [address] [place] [address] 10/18/2024 10:45:45 10/18/2024 11:13:02 Male hypogonadism 28134267 E29.1 [id number] Karen Luis MA [facility] [place] [address] [place] [address] 11/01/2024 10:48:52 11/01/2024 11:08:55 Male hypogonadism 91451133 E29.1 [id number] Alma Chung MD [facility] [place] [address] [place] [address] 11/15/2024 10:46:49 11/15/2024 11:19:43 Male hypogonadism 99301358 E29.1 [id number] Alma Chung MD [facility] [place] [address] [place] [address] 12/20/2024 12:00:37 12/20/2024 13:13:07 Body mass index 30+ - obesity 588815258 Z68.38 Obesity 843393942 E66.9 Essential hypertension 87615212 I10 Hyperlipidemia 27600628 E78.5 Fatigue 33581759 R53.83 Testostero ne level below reference range 712549063 R89.1 Type 2 lakhwinder betes mellitus 81983948 E11.9 Obstructiv e sleep apnea syndrome 14348096 G47.33 [id number] Salena Milian MA [facility] [place] [address] [place] [address] 12/23/2024 09:47:39 12/23/2024 10:18:27 Male hypogonadism 95492535 E29.1 [id number] Alma Chung MD [facility] [place] [address] [place] [address] 01/06/2025 10:06:45 01/06/2025 11:20:50 Body mass index 30+ - obesity 956048882 Z68.38 Obesity 895923346 E66.9 Male hypogonadism 531523 06 E29.1 Low back pain 009556588 M54.50 [id number] Salena Milian MA [facility] [place] [address] [place] [address] 01/24/2025 11:25:06 01/24/2025 16:12:41 Male hypogonadism 48687527 E29.1 [id number] Alma Chung MD [facility] [place] [address] [place] [address] 01/27/2025 10:26:38 01/27/2025 10:56:20 Body mass index 30+ - obesity 104384783 Z68.38 Obesity 061549143 E66.9 Dysuria 21550893 R30.0 Pain in bi lateral legs 1371372156 6277932 M79.604 M79.742 [id number] Ese Hutchins MA [facility] [place] [address] [place] [address] 02/07/2025 11:08:25 02/09/2025 12:35:05 Testosterone level below reference range 516315284 R89.1 [id number] Salena Milian MA [facility] [place] [address] [place] [address] 02/21/2025 11:06:37 02/21/2025 14:44:25 Testosterone level below reference range 822625716 R89.1 [id number] Salena Milian MA [facility] [place] [address] [place] [address] 03/07/2025 11:07:44 03/07/2025 16:22:33 Testosterone level below reference range 238577425 R89.1 Health Concerns Section Related Observation LastModified by Organization Detai ls LastModified Time None Recorded Concern Status LastModified by Organization Details LastModified Time None Recorded Advance Directives Directive Y: Payers Encounter Date Sequence Insurance Name Policy Number Policy Hodges Covered Member ID Hodges Member ID Guarantor Name 01/24/2025 1 [facility] (MEDICARE REPLACEMENT/A DVANTAGE - HMO) [id number] Regino Stephenson [id number] Regino Stephenson 01/27/2025 1 [facility] (MEDICARE REPLACEMENT/A DVANTAGE - HMO) [id number] Regino Stephenson [id number] Regino Stephenson 02/07/2025 1 [facility] (MEDICARE REPLACEMENT/A DVANTAGE - HMO) [id number] Regino Stephenosn [id number] Regino Stephenson 02/21/2025 1 [facility] (MEDICARE REPLACEMENT/A DVANTAGE - HMO) [id number] Regino Stephenson [id number] Regino Stephenson 03/07/2025 1 [facility] (MEDICARE REPLACEMENT/A DVANTAGE - HMO) [id number] Regino Stephenson [id number] Regino Stephenson Notes Date Note Type Note Provider Name and Address Organization Details Recorded Time 01/27/2025 text/html legs are bothering him some pain down both sides maybe little bit of numbness no bowel or bladder problems trying some therapy and not having any inroads just yet no clear-cut back pain but does feel weak in his legs sometimes he has also been having a little bit of dysuria Alma Chung MD Attn: Accounting,[address] [facility], [place], [address], [facility] - [facility] 01/30/2025 16:55:07
--- OUTSIDE RECORDS SUMMARY | 2025-03-15 11:26 | XMS_ITS | Continuity of Care Document ---
Author Organization [facility] Address [address] [facility] [address] [facility] [address] [place] [address] Phone Care Team Providers Care Crane Operator Cab Name Role Phone Rowe OD, Manjeet Unavailable Unavailable Procedures Procedure Date Office/outpatient Visit, Est Advance Directives Directive Yes / No Effective Date File Name No Information Encounters Encounter Description Practice Location Reason(s) For Visit Diagnoses Date Provider Providers Copied on Encounter Office/outpat ient Visit, Est [facility], [address], [place], [place], [id number], [place] tel:[phone] [facility] No Information [phone] Rowe OD Manjeet. [address] , [address], [place], [address], [place]. tel:[phone] Family History Family Member Type Diagnosis Age At Onset No Information Payers Payer name Insurance type Covered alliance party ID Authoriza timike(s) [facility] Commercial CI [id number] Social History Type Description Quantity Date Captured [...]
--- NOTE | 2025-03-15 12:00 | NEURO_ITS ---
Impression: # Complains of pain in lower extremities. Non-diabetic. ? # Axonal motor/sensory neuropathy. ? # Needle/EMG exam reveals neurogenic changes. ? # Clinical correlation recommended. Nerve Conduction Studies Anti Sensory Summary Table ?Stim Site NR Peak (ms) P-T Amp (?V) Site1 Site2 Delta-P (ms) Dist (cm) Jean Paul (m/s) Left Sup Fibular Anti Sensory (Ant Lat Mall) 14 cm ? 3.4 11.6 14 cm Ant Lat Mall 3.4 16.0 47 Right Sup Fibular Anti Sensory (Ant Lat Mall) 14 cm ? 3.7 4.8 14 cm Ant Lat Mall 3.7 16.0 43 Left Sural Anti Sensory (Lat Mall) Calf ? 4.0 12.7 Calf Lat Mall 4.0 16.0 40 Right Sural Anti Sensory (Lat Mall) Calf ? 3.8 12.0 Calf Lat Mall 3.8 16.0 42 Motor Summary Table ?Stim Site NR Onset (ms) O-P Amp (mV) Site1 Site2 Delta-0 (ms) Dist (cm) Jean Paul (m/s) Left Peroneal Motor (Vastus Med) Ankle ? 3.7 2.3 Popit Ankle 10.0 43.0 43 Popit ? 13.7 2.7 Right Peroneal Motor (Vastus Med) Ankle ? 4.0 3.6 Popit Ankle 9.7 45.0 46 Popit ? 13.7 2.8 Left Tibial Motor (Abd Byrne Brev) Ankle ? 4.7 1.2 Knee Ankle 10.5 44.0 42 Knee ? 15.2 0.7 Right Tibial Motor (Abd Byrne Brev) Ankle ? 4.2 1.6 Knee Ankle 10.9 46.0 42 Knee ? 15.1 1.3 F Wave Studies ?NR F-Lat (ms) L-R F-Lat (ms) Left Peroneal (Mrkrs) (EDB) ? 60.14 0.84 Right Peroneal (Mrkrs) (EDB) ? 59.30 0.84 Left Tibial (Mrkrs) (Abd Hallucis) ? 60.05 0.87 Right Tibial (Mrkrs) (Abd Hallucis) ? 59.18 0.87 EMG ?Side Muscle Nerve Root Ins Act Fibs Amp Dur Recrt Comment Right AntTibialis Dp Br Fibular L4-5 Nml Nml Decr >12ms +1 Right Fibularis Long Sup Br Fibular L5-S1 Nml Nml Decr >12ms +1 Right Gastroc Tibial S1-2 Nml Nml Decr >12ms +1 Right Flex Dig Long Tibial L5-S2 Nml Nml Decr >12ms +1 Right Ext Dig Brev Dp Br Fibular L5, S1 Nml Nml Decr >12ms +2 Right QuadratusFem QuadFemoris L4-5, S1 Nml Nml Decr >12ms +1 Left AntTibialis Dp Br Fibular L4-5 Nml Nml Decr >12ms +1 Left Gastroc Tibial S1-2 Nml Nml Decr >12ms +1 Left Fibularis Long Sup Br Fibular L5-S1 Nml Nml Decr >12ms +1 Left Flex Dig Long Tibial L5-S2 Nml Nml Decr >12ms +1 Left Ext Dig Brev Dp Br Fibular L5, S1 Nml Nml Decr >12ms +2 Left QuadratusFem QuadFemoris L4-5, S1 Nml Nml Decr >12ms +1 MTDD
== END 2025-03-15 10:06 | disposition home or self-care (01) ==
LOC: ANHNEURO 10:07
PROVIDERS: PCP Internal Medicine; Visit Provider Internal Medicine
DX: G62.9 Polyneuropathy, unspecified (principal)
CPT/HCPCS: 95886; 95910

== ENCOUNTER 2025-03-21 10:21 | Outpatient (CLI) | payer MEDICARE, SELFPAY ==
--- NOTE | ~2025-03-21 | XR_ITS ---
3 VIEWS LUMBAR SPINE Ordering provider: Tracy Vuong MD History: . ap/lat/f/e( bending forwarding and backward) . Comparison: January 17, 2025. FINDINGS: VERTEBRAL BODIES:Levoscoliosis. No visible fracture or subluxation. Degenerative changes of the spin e. DISK SPACES: Narrowing of the disc L2-L3, L3-4, L4-L5 and L5-S1. Facet joint disease seen at the leve l of L4-L5 and L5-S1. SOFT TISSUES: Normal. IMPRESSION: No acute osseous abnormality lumbar spine. Multilevel degenerative disc disease. Reviewed, dictated and finalized at location A.
== END 2025-03-21 10:22 | disposition home or self-care (01) ==
PROVIDERS: PCP Pain Medicine Pain Medicine; Visit Provider Neurological Surgery
DX: M51.369 Other intervertebral disc degeneration, lumbar region without mention of lumbar back pain or lower extremity pain (principal); Z98.1 Arthrodesis status
CPT/HCPCS: 72110

== ENCOUNTER 2025-04-14 13:30 | Outpatient (RCR) | payer MEDICARE, SELFPAY ==
[2025-01-25 10:45] VITALS: BMI 37.2
[2025-01-25 10:50] VITALS: BMI 37.2
[2025-04-14 13:30] VITALS: BMI 37.3
[2025-04-14 13:40] VITALS: BMI 37.3
== END 2025-04-25 09:17 | disposition home or self-care (01) ==
LOC: ANHDMC 13:30
PROVIDERS: PCP Internal Medicine; Visit Provider Internal Medicine
DX: E11.9 Type 2 diabetes mellitus without complications (principal); Z71.3 Dietary counseling and surveillance
CPT/HCPCS: 97803

== ENCOUNTER 2025-05-20 08:16 | Outpatient (CLI) | payer MEDICARE, SELFPAY ==
--- NOTE | ~2025-05-20 | XR_ITS ---
EXAM/PROCEDURE: XR chest 2V - 05/20/2025 9:20 CDT HISTORY: 69 years old Male with M48.062 - Spinal stenosis, lumbar region with neurogenic ... TECHNIQUE: Two view(s) of the chest. COMPARISON: None available. FINDINGS: LUNGS/ PLEURA: No focal consolidation. No appreciable pneumothorax or large pleural effusion. HEART/ MEDIASTINUM: Heart appears normal in size. BONES: Degenerative changes. OTHER: Visualized upper abdomen is unremarkable. Tortuous aorta. IMPRESSION: No acute process. Reviewed, dictated and finalized at location A. IMPRESSION: No acute process.
--- NOTE | 2025-05-20 08:53 | ECG_ITS ---
Test Date: 2025-05-20 09:15:06 Measurements Intervals [place] Rate: 78 P: 39 NH: 203 QRS: -22 QRSD: 93 T: 54 QT: 350 QTc: 401 Interpretive Statements SINUS RHYTHM LOW QRS VOLTAGE IN PRECORDIAL LEADS POSSIBLE ANTERIOR MYOCARDIAL INFARCTION BORDERLINE T WAVE ABNORMALITY- HIGH LATERAL LEADS ABNORMAL ECG No previous ECG available for comparison Electronically Signed On 05-20-2025 09:33:28 CDT by Benedicto Millard D.O.
[2025-05-20 09:28] LABS: Hematocrit 52.5 % (42.0-52.0); Hemoglobin 16.6 g/dL (14.0-18.0); Mean Corpuscular HGB Conc 31.6 g/dl (32-36); Mean Corpuscular Hemoglobin 29.2 pg (26-34); Mean Corpuscular Volume 92.4 fl (80-100); Mean Platelet Volume 10.2 fl (7.4-10.4); Platelet Count Result 254 k/mm3 (150-375); Red Blood Count 5.68 M/mm3 (4.6-6.20); Red Cell Distribution Width 14.9 % (11.5-14.5); White Blood Count 9.2 K/mm3 (4.5-10.0)
[2025-05-20 09:41] LABS: INR 0.9; Partial Thromboplastin Time 25.9 Seconds (22.3-36.8); Prothrombin Time 11.8 Seconds (11.1-14.7)
[2025-05-20 09:43] LABS: Add Urine Microscopic? YES; Appearance Urine Cloudy (Clear); Bacteria Urine 4+ /hpf; Bilirubin Urine Negative (Negative); Blood Urine Negative (Negative); Color Urine Yellow (Yellow); Glucose Urine UA Negative (Negative); Ketones Urine Trace mg/dL (Negative); Leukocyte Esterase Ur 2+ LEU/UL (Negative); Nitrate Urine Negative (Negative); Non Pathogenic Casts 0-2; Protein Urine Negative (Negative); Specific Grav Ur 1.018 (1.001-1.035); Squamous Epithelial Cell Urine None Seen /hpf (Few)
[2025-05-20 10:32] LABS: Anion Gap 11 mmol/L (4-12); Blood Urea Nitrogen 20 mg/dL (9-20); Calcium 9.7 mg/dL (8.4-10.2); Carbon Dioxide 23 mmol/L (22-30); Chloride 106 mmol/L (98-107); Estimated Glomerular Filt Rate > 60; Glucose 104 mg/dL (65-110); Potassium 3.8 mmol/L (3.4-5.0); Sodium 140 mmol/L (137-145)
[2025-05-20 14:20] LABS: Hemoglobin A1C. 5.6 % (<5.7)
== END 2025-05-20 08:17 | disposition home or self-care (01) ==
LOC: ANHSURGERY 08:17
PROVIDERS: PCP Internal Medicine; Visit Provider Neurological Surgery
DX: Z01.818 Encounter for other preprocedural examination (principal); M48.062 Spinal stenosis, lumbar region with neurogenic claudication; R82.90 Unspecified abnormal findings in urine; R94.31 Abnormal electrocardiogram [ECG] [EKG]
CPT/HCPCS: 36415; 71046; 80048; 81001; 83036; 85027; 85610; 85730; 87086; 93005

== ENCOUNTER 2025-06-16 07:20 | Outpatient (CLI) | payer MEDICARE, SELFPAY ==
--- NOTE | ~2025-06-16 | CT_ITS ---
EXAMINATION: CT abdomen pelvis wo/w con DATE: 06/16/2025 07:58 INDICATION: Microscopic hematuria TECHNIQUE: Computed tomography (CT) of the abdomen and pelvis was performed with 100 mL Omnipaque-350 intravenous contrast. Automated exposure control and iterative reconstruction technique were employe d. The dose-length product was 2746.64 mGy-cm. COMPARISON: None FINDINGS: Lung bases are clear. Heart size is normal. No pericardial or pleural effusion. Liver, gallbladder, s pleen, pancreas are normal. Small right adrenal nodule and one measuring 2.2 cm with relatively lower attenuation suggestive of adenoma and a second measuring 2.5 cm which is intermediate attenuation, i ndeterminate but statistically most likely to represent an additional abnormal. 5 mm low-attenuation right renal cyst. Left kidney is normal. Symmetric renal enhancement. No urolithiasis or urothelial i rregularities at the bilateral renal collecting systems and ureters. Bladder is normal. Prostatomegal y measuring 5.1 x 4.3 cm. Bowels including the appendix are normal. No free intraperitoneal gas or fl uid. No pathologically enlarged abdominal or pelvic lymphadenopathy. Moderate lumbar and lower thorac ic spondylosis. Moderate bilateral hip and sacroiliac osteoarthritis. IMPRESSION: 1. 5 mm right renal cyst. Otherwise normal kidneys and ureters with no urolithiasis, urothelial irreg ularities or other etiology for reported microscopic hematuria. 2. Indeterminate bilateral adrenal nodules measuring up to 2.5 cm and the left adrenal gland. Recomme nd further evaluation with pre and postcontrast CT or MRI. 3. Prostatomegaly. Reviewed, dictated and finalized at location A. IMPRESSION: 1. 5 mm right renal cyst. Otherwise normal kidneys and ureters with no urolithi asis, urothelial irregularities or other etiology for reported microscopic sera turia. 2. Indeterminate bilateral adrenal nodules measuring up to 2.5 cm and the left adrenal gland. Recommend further evaluation with pre and postcontrast CT or MRI . 3. Prostatomegaly.
--- OUTSIDE RECORDS SUMMARY | 2025-06-16 07:24 | XMS_ITS | Data Portability ---
Author Organization [facility] CLARA[facility] Smith Address [address] [facility] [place] [place] [address] Care Team Providers Care Steward/Stewardess Smoke Room Name Role Phone ALMA CHUNG Primary Care Provider [phone] Assessment No assessment recorded. Plan of Treatment Reminders Order Date Submit Date Provider Last Modified By Organization Details Last Modified Time Details Appointments NURSE ONLY 2024 10:00A M Nurse Not available Not available Not available ANY 15 2024 09:15A M Alma Chung MD Not available Not available Not available Lab None recorded. Referral None recorded. Procedures None recorded. Surgeries None recorded. Imaging None recorded. Medication Orders testoster one cypionate 200 mg/mL intramusc ular oil 2024 025 [email or web address] [id number], [address] [place], [address], 06/06/2025 15:17:36 testoster one cypionate 200 mg/mL intramusc ular oil 2024 025 [email or web address] [id number], [address] [place], [address], 06/06/2025 15:17:36 testoster one cypionate 200 mg/mL intramusc ular oil 2024 025 Not available 05/20/2025 11:54:21 testoster one cypionate 200 mg/mL intramusc ular oil 2024 025 [id number] [facility], [address] [place], [address], 05/05/2025 20:38:04 testoster one cypionate 200 mg/mL intramusc ular oil 2024 025 [email or web address] Not available 04/22/2025 10:33:09 testoster one cypionate 200 mg/mL intramusc ular oil 2024 025 [email or web address] [facility], [address] [place], [address], 04/05/2025 12:20:33 Patient TargetsNo targets recorded. Patient InstructionsNo instructions recorded. Reason for Referral None Reported. Results Created Date Observation Date Name Description Value Unit Range Abnormal Flag Note LastModifiedBy Organization Detail LastModifiedTime 03/16/2003/15/2025 nerve condu ction study /EMG, lower extre mity (PROC ) No observ ation record ed. [facility] (Cardiology & Emg) [address] [place] [address], [address], 03/18/2025 10:13:25 05/20/20 25 05/20/2025 XR, chest No observ ation record ed. [address], [address], 05/23/2025 15:29:09 05/23/20 25 05/20/2025 elect vanita rothman am No observ ation record ed. [email or web address] [address], [address], 05/27/2025 15:54:58 Result Notes None recorded. Problems Name Problem SNOMED Code Status Onset Date Resolution Date Notes Provider Name and Address Organization Details Recorded Time Type 2 diabetes mellitus 76596479 Active 2023 Alma Chung MD Attn: Dara baeza,[address] [facility], [place], [address], [facility] - [facility] 22:21:20 Essential hypertensio n 46829048 Active 2023 Alma Chung MD Attn: Dara baeza,[address] [facility], [place], [address], [place] - [facility] 4 22:21:21 Hyperlipide tanisha 25580849 Active 2023 Alma Chung MD Attn: Dara baeza,[address] [facility], [place], [address], [place] [facility] 4 22:21:25 Fatigue 81651371 Active 2023 Alma Chung MD Attn: Dara baeza,[address] [facility], [place], [address], [place] [facility] 4 22:21:27 Testosteron e level below reference range 748402657 Active 2023 Ese Hutch[place] null, [place] - [facility] 4 14:28:03 Obstructive sleep apnea syndrome 52692535 Active 2023 Alma Chung MD Attn: Dara baeza,[address] [facility], [place], [address], [place] [facility] 4 15:32:35 Low back pain 004744593 Active 2024 Ese Hutch[place], [place] - [facility] 5 11:16:58 Pain in bilateral legs 0513245852131 9108 Active 2024 Ese [place], [place] [facility] 5 10:57:26 Dysuria 91634720 Active 2024 Ese [place], [place] - [facility] 5 10:57:45 Notes:Some problems listed i n Document: #[id number] could not be added to this patient's chart. Please review this document and add these problems to the patient's chart manually as needed. Problem Notes None recorded. Procedures Surgical History Date Name Laterality Status Provider Name and Address Organization Details Recorded Time Hernia Repair completed Frantz Floyd [place] - [facility] 02/06/2024 12:32:13 Imaging Results None recorded. Procedure Notes None recorded. Medical Equipment None Reported. Allergies Allergen ID Allergen Name Allergen Category Reaction Reaction Severity Criticality Documentation Date Start Date Code Code System Note Provider Name and Address Organization Details Recorded Time 600830 levofloxa justin medicatio n other Not available Not available 02/06/2024 54668 RxNorm cuong eSrrano [place], [place] - [facility] 4 12:26:04 765721 Levaquin medicatio n Not available Not available Not available 01/06/2025 66981 2 RxNorm Salena Milian [place] null, [place] - [facility] 5 10:20:47 Medications Name Sig Start Date Stop Date Status Note LastModified by Organization Details LastModified Time BD Luer-Yenifer Syringe 3 mL 23 x 1 USE DIRECTED TO INJECT TESTOSTE NIKKI EVERY OTHER WEEK 2023 active Not Available Not Available Not Avai lable carvedilo l 12.5 mg tablet TAKE 1 TABLET BY MOUTH TWICE A DAY 2024 active Not Available Not Available Not Avai lable atorvasta tin 10 mg tablet TAKE 1 TABLET BY MOUTH EVERY DAY active Not Available Not Available No t Available tizanidin e 4 mg tablet TAKE ONE TABLET BY MOUTH AT BEDTIME NEEDED FOR BACK/BUT TOCK PAIN active Not Available Not Available No t Available carvedilo l 3.125 mg tablet TAKE 2 TABLETS IN THE MORNING AND 2 TABLETS AT BEDTIME 08/02 completed Dose increase d Not Available Not Available Not Available OneTouch Ultra Test strips USE 3 TIMES DAILY BEFORE MEALS 2024 active No longer covered by [facility] as of 06/26/25 Not Available Not Available Not Available metformin 1,000 mg tablet TAKE 1 TABLET BY MOUTH TWICE A DAY 2024 active Not Available Not Available Not Avai lable hydrochlo rothiazid e 25 mg tablet TAKE 1 TABLET BY MOUTH TWICE A DAY active Not Available Not Available No t Available testoster one cypionate 200 mg/mL intramusc ular oil INJECT 1.5ML (300 MG) EVERY 2 WEEKS BY INTRAMUS CULAR ROUTE. 2024 active Not Available Not Available Not Avai lable amlodipin e 10 mg-benaze pril 40 mg capsule TAKE 1 CAPSULE BY MOUTH EVERY DAY 2024 active Not Available Not Available Not Avai lable Tresiba FlexTouch U-100 insulin 100 unit/mL (3 mL) subcutane ous pen INJECT SUBCUTAN EOUSLY 35 UNITS DAILY 2023 active Not Available Not Available Not Avai lable Dexcom G6 Sensor device USE DIRECTED TO CHECK SUGAR EVERY DAY *CHANGE EVERY 10 DAYS active Not Available Not Available No t Available Dexcom G6 Truck Driver Rubbish Collector USE DIRECTED TO CHECK SUGAR DAILY active Not Available Not Available No t Available OneTouch Delica Plus Lancet 30 gauge USE DIRECTED TO CHECK BLOOD SUGAR 3 TIMES DAILY active No longer covered by insuranc e as of 06/26/25 Not Available Not Available Not Available Ozempic 1 mg/dose (4 mg/3 mL) subcutane ous pen injector inject 1mg weekly for 4wks then go up. 10/04 completed Not Available Not Available Not Available Mounjaro 2.5 mg/0.5 mL subcutane ous pen injector inject 2.5mg weekly for 4wks then go to 5mg weekly 07/12 completed Not Available Not Available Not Available Ozempic 0.25 mg or 0.5 mg (2 mg/3 mL) subcutane ous pen injector INJECT 0.25MG SUBCUTAN EIOUSLY WEEKLY FOR 4WKS THEN GO TO 0.5MG WEEKLY FOR 4WKS 08/02 completed Dose increase d Not Available Not Available Not Available Vitals None Recorded Social History Question Answer Notes LastModified by Organizat ion Details LastModified Time Tobacco Smoking Status Never Smoker Frantz Floyd MA [facility], [place] - [facility] 02/06/2024 12:31:25 Do You Have An Advance Directive? Yes Information not available 08/02/2024 Are You Blind Or Do You Have [...] No Information not available 08/30/2024 Are You Deaf Or Do You Have Serious Difficulty Hearing? No Ringing In Left Ear Information not available 08/02/2024 What Type Of Diet Are You Following? REGULAR Information not available 02/06/2024 What Is The Highest Grade Or Level Of School You Have Completed Or The Highest Degree You Have Received? [id number] Information not available 08/02/2024 Are There Any Guns Present In Your Home? No Information not available 02/06/2024 In The Past 7 Days, How Many Days Did You Exercise? 0 Information not available 08/02/2024 In The Past 7 Days, How Much Pain Have You [place]? Some Information not available 08/02/2024 In General, [...] Past 7 Days, How Often Have You [place] Sleepy In The Daytime? Usually Information not available 08/02/2024 # Alcohol Drinks Per Week 0 Information not available 08/02/2024 What Was The Date Of Your Most Recent Tobacco Screening? 03/21/2025 Information not available 03/21/2025 What Is Your Relationship Status? Information not available 02/06/2024 Do You Use Your Seat Belt Or Car Seat Routinely? Yes Information not available 02/06/2024 Do You Have Smoke And Carbon Monoxide Detectors In Your Home? Yes Information not available 02/06/2024 Do You Use Sunscreen Routinely? No Information not available 02/06/2024 Has Tobacco Cessation Counseling Been Provided? No Information not available 02/06/2024 Sex: Male Functional Status Question Answer Note LastModified by Organizat ion Details LastModified Time Do you use any illicit or recreational drugs? No Information not available 02/06/2024 Do you or have you ever used any other forms of tobacco or nicotine? No Information not available 02/06/2024 What is your level of alcohol consumption? Occasional Information not available 02/06/2024 Are you currently employed? No Retired Information not available 08/02/2024 Are you able to care for yourself? Yes Information not available 02/06/2024 What is your exercise level? None Information not available 02/06/2024 Mental Status Question Answer Note LastModified by Organization D etails LastModified Time Do you feel stressed (tense, restless, nervous, or anxious, or unable to sleep at night)? [id number] Information not available 08/02/2024 Family History Relationship Description Onset Age of [...] Skin Problems N Anemia N Heart Attack ([place]) N Anxiety Disorder N Diabetes Y Muscle, [...] Immunizations Vaccine Type Date Status Note Provider Saji garces and Address Organization Details Recorded Time Influenza, split virus, quadrivalent, preservative 8 completed JHOAN Arriaza, [place] 05/31/2024 11:08:44 Influenza, split virus, quadrivalent, preservative [...] Hep B, adult 9 completed Maria Luisa Quintanilla RMA [place], [place] [facility] 05/31/2024 11:08:44 Hep B, adult 9 completed Maria Luisa Quintanilla R[place] [facility] 05/31/2024 11:08:44 Hep A, adult 0 completed Maria Luisa Quintanilla RMA [place], [place] - [facility] 05/31/2024 11:08:44 Hep A, adult 9 completed Maria Luisa Quintanilla RMA [place], [place] [facility] 05/31/2024 11:08:44 Influenza, split virus, quadrivalent, PF 2 completed Maria Luisa Quintanilla RMA null, [place] [facility] 05/31/2024 11:08:44 Pneumococcal conjugate PCV20, polysaccharide [id number] conjugate, adjuvant, PF 4 completed Alma Chung MD Attn: Accounting[address] [place], [address], [facility] - [facility] 08/08/2024 17:40:03 Influenza, high-dose, trivalent, PF 4 completed Alma Chung MD Attn: Accounting[address] [place], [address], [facility] 09/04/2024 15:25:11 Past Encounters Encounter ID Performer Location Encounter Start Date Encounter Closed Date Diagnosis/Indication Diagnosis SNOMED-CT Code Diagnosis ICD10 Code Diagnosis Note [id number] Alma Chung MD [facility] (Adult Med) [address] [place] [address] 02/06/2024 11:45:28 02/06/2024 13:12:37 Type 2 diabetes mellitus 42362600 E11.9 Essential hypertension 19734498 I10 Hyperlipidemia 18402591 E78.5 Fatigue 75415312 R53.83 Screening for malignant neoplasm of prostate 799898022 Z12.5 Obesity 773088206 E66.9 [id number] Alma Chung MD [facility] [place] [address] [place] [address] 04/01/2024 10:02:35 04/01/2024 14:39:03 Testosterone level below reference range 144599950 R89.1 [id number] Alma Chung MD [facility] - [place] [address] [place] [address] 04/15/2024 09:14:30 06/16/2024 20:52:51 Testosterone level below reference range 550100377 R89.1 [id number] Alma Chung MD [facility] - [place] [address] [place] [address] 04/29/2024 10:57:30 06/01/2024 13:42:10 Testosterone level below reference range 890457717 R89.1 [id number] Alma Chung MD [facility] - [place] [address] [place] [address] 05/13/2024 10:33:51 05/13/2024 11:07:51 Testosterone level below reference range 950984478 R89.1 [id number] Alma Chung MD [facility] - [place] [address] [place] [address] 05/31/2024 10:37:45 05/31/2024 11:30:22 Testosterone level below reference range 930651120 R89.1 [id number] Alma Chung MD [facility] - [place] [address] [place] [address] 06/07/2024 10:16:02 06/07/2024 11:22:20 Morbid obesity 386988690 E66.01 Essential hypertension 16611269 I10 Type 2 lakhwinder betes mellitus 50942196 E11.9 Sleep disorder 03146160 G47.9 [id number] Alma Chung MD [facility] [place] [address] [place] [address] 06/15/2024 10:29:00 06/15/2024 12:46:48 Male hypogonadism 16265497 E29.1 [id number] Alma Chung MD [facility] (Adult Med) [address] [place] [address] 06/25/2024 12:19:04 06/25/2024 13:07:02 Male hypogonadism 85610431 E29.1 [id number] Alma Chung MD [facility] - [place] [address] [place] [address] 07/08/2024 14:03:31 07/08/2024 14:17:16 Male hypogonadism 72150128 E29.1 [id number] Alma Chung MD [facility] - [place] [address] [place] [address] 07/12/2024 11:10:30 07/12/2024 12:55:22 Sleep disorder 39235577 G47.9 Essential hypertension 40543347 I10 Type 2 lakhwinder betes mellitus 22551485 E11.9 Hyperlipidemia 17889574 E78.5 [id number] Alma Chung MD [facility] - [place] [address] [place] [address] 07/22/2024 10:45:00 07/22/2024 11:08:47 Testosterone level below reference range 277891279 R89.1 [id number] Alma Chung MD [facility] - [place] [address] [place] [address] 08/02/2024 11:47:54 08/02/2024 13:15:04 Adult health examination 683347687 Z00.00 Health Risk Assessment collected and reviewed Type 2 lakhwinder betes mellitus 90557143 E11.9 Essential hypertension 28074183 I10 Immunization due 4532889 08 Z28.39 [id number] Alma Chung MD [facility] [place] [address] [place] [address] 08/05/2024 11:13:22 08/05/2024 11:48:22 Male hypogonadism 03204342 E29.1 [id number] Alma Chung MD [facility] [place] [address] [place] [address] 08/19/2024 11:12:11 08/19/2024 12:05:11 Male hypogonadism 81647853 E29.1 [id number] Alma Chung MD [facility] [place] [address] [place] [address] 08/30/2024 11:14:49 08/30/2024 12:11:16 Morbid obesity 783792405 E66.01 Essential hypertension 61306740 I10 Administra tion of influenza vaccine 06987630 Z23 [id number] Alma Chung MD [facility] [place] [address] [place] [address] 09/02/2024 14:02:43 09/02/2024 14:31:17 Male hypogonadism 64693431 E29.1 [id number] Alma Chung MD [facility] [place] [address] [place] [address] 09/20/2024 10:51:36 09/20/2024 11:05:03 Male hypogonadism 89885773 E29.1 [id number] Alma Chung MD [facility] [place] [address] [place] [address] 10/04/2024 11:56:50 10/04/2024 13:13:13 Body mass index 40+ - severely obese 906326867 Z68.41 Morbid obesity 477757365 E66.01 Male hypogonadism 723507 06 E29.1 Essential hypertension 99729161 I10 Hyperlipidemia 54109554 E78.5 Type 2 lakhwinder betes mellitus 67515249 E11.9 Obstructiv e sleep apnea syndrome 47363238 G47.33 Testostero ne level below reference range 241658658 R89.1 [id number] Alma Chung MD [facility] [place] [address] [place] [address] 10/18/2024 10:45:45 10/18/2024 11:13:02 Male hypogonadism 85387520 E29.1 [id number] Alma Chung MD [facility] [place] [address] [place] [address] 11/01/2024 10:48:52 11/01/2024 11:08:55 Male hypogonadism 68685495 E29.1 [id number] Alma Chung MD [facility] [place] [address] [place] [address] 11/15/2024 10:46:49 11/15/2024 11:19:43 Male hypogonadism 02041721 E29.1 [id number] Alma Chung MD [facility] [place] [address] [place] [address] 12/20/2024 12:00:37 12/20/2024 13:13:07 Body mass index 30+ - obesity 834082398 Z68.38 Obesity 373721633 E66.9 Essential hypertension 41072527 I10 Hyperlipidemia 76223227 E78.5 Fatigue 05247737 R53.83 Testostero ne level below reference range 477876160 R89.1 Type 2 lakhwinder betes mellitus 29545729 E11.9 Obstructiv e sleep apnea syndrome 99232170 G47.33 [id number] Alma Chnug MD [facility] [place] [address] [place] [address] 12/23/2024 09:47:39 12/23/2024 10:18:27 Male hypogonadism 92901398 E29.1 [id number] Alma Chung MD [facility] [place] [address] [place] [address] 01/06/2025 10:06:45 01/06/2025 11:20:50 Body mass index 30+ - obesity 149439654 Z68.38 Obesity 986553775 E66.9 Male hypogonadism 926992 06 E29.1 Low back pain 062532665 M54.50 [id number] Alma Chung MD [facility] [place] [address] [place] [address] 01/24/2025 11:25:06 01/24/2025 16:12:41 Male hypogonadism 65771141 E29.1 [id number] Alma Chung MD [facility] [place] [address] [place] [address] 01/27/2025 10:26:38 01/27/2025 10:56:20 Body mass index 30+ - obesity 995699624 Z68.38 Obesity 270034901 E66.9 Dysuria 28433949 R30.0 Pain in bi lateral legs 2566625025 5084583 M79.604 M79.957 [id number] Alma Chung MD [facility] [place] [address] [place] [address] 02/07/2025 11:08:25 02/09/2025 12:35:05 Testosterone level below reference range 015265302 R89.1 [id number] Alma Chung MD [facility] [place] [address] [place] [address] 02/21/2025 11:06:37 02/21/2025 14:44:25 Testosterone level below reference range 913750842 R89.1 [id number] Alma Chung MD [facility] [place] [address] [place] [address] 03/07/2025 11:07:44 03/07/2025 16:22:33 Testosterone level below reference range 310395142 R89.1 [id number] Alma Chung MD [facility] [place] [address] [place] [address] 03/21/2025 10:02:37 03/21/2025 10:55:27 Body mass index 30+ - obesity 461869882 Z68.37 Obese class I 0878456974 [address]474 E66.811 Testostero ne level below reference range 085010629 R89.1 Essential hypertension 91756279 I10 Type 2 lakhwinder betes mellitus 63116357 E11.9 [id number] Alma Chung MD [facility] [place] [address] [place] [address] 04/04/2025 11:01:00 04/04/2025 18:07:43 Testosterone level below reference range 925755469 R89.1 [id number] Alma Chung MD [facility] [place] [address] [place] [address] 04/21/2025 14:03:28 04/21/2025 17:17:43 Testosterone level below reference range 768366115 R89.1 [id number] Alma Chung MD [facility] - [place] [address] [place] [address] 05/05/2025 14:00:33 05/05/2025 15:55:57 Testosterone level below reference range 240225441 R89.1 [id number] Alma Chung MD [facility] [place] [address] [place] [address] 05/19/2025 14:02:18 05/19/2025 17:15:23 Testosterone level below reference range 663144468 R89.1 [id number] Alma Chung MD [facility] [place] [address] [place] [address] 06/06/2025 14:07:28 06/06/2025 16:45:43 Testosterone level below reference range 708362915 R89.1 Health Concerns Section Related Observation LastModified by Organization Detai ls LastModified Time None Recorded Concern Status LastModified by Organization Details LastModified Time None Recorded Advance Directives Directive Y: Payers Insurance Date Sequence Insurance Name Policy Number Policy Hodges Covered Member ID Hodges Member ID Guarantor Name 06/09/2025 1 [facility] (MEDICARE REPLACEMENT/A DVANTAGE - HMO) [id number] Regino Stephenson [id number] Regino Stephenson
--- OUTSIDE RECORDS SUMMARY | 2025-06-16 07:24 | XMS_ITS | Continuity of Care Document ---
Author Organization [facility] Address [address] [facility] [address] [place] [address] Phone Care Team Providers Care Control Director Name Role Phone Rowe OD, Manjeet Unavailable Unavailable Procedures Procedure Date Office/outpatient Visit, Est Advance Directives Directive Yes / No Effective Date File Name No Information Encounters Encounter Description Practice Location Reason(s) For Visit Diagnoses Date Provider Providers Copied on Encounter Office/outpat ient Visit, Est [facility], [address], [place], [place], [id number], [place] tel:[phone] [facility] No Information [phone] Rowe OD Manjeet. [address] , [address], [place], [address], [place]. tel:[phone] Family History Family Member Type Diagnosis Age At Onset No Information Payers Payer name Insurance type Covered constitution party ID Authoriza timike(s) [facility] Commercial CI [id number] Social History Type Description Quantity Date Captured [...]
--- OUTSIDE RECORDS SUMMARY | 2025-06-16 07:24 | XMS_ITS | Data Portability ---
Author Organization [place] [facility], Main Office Address [address] [place] [address] Assessment Encounter Date Assessment Date Assessment LastModified by Organization Details LastModified Time 03/27/2023 03/27/2023 Decrease to Tresiba to 30 units follow-up with me in 2 months blood pressure fair control weight reduction again recommended consider Ozempic [email or web address] Not available 03/29/2023 17:01:38 06/12/2023 06/12/2023 Congratulated him on his weight loss continue with current therapy follow-up with me in 3 months [email or web address] Not available 06/13/2023 17:53:32 10/02/2023 10/02/2023 Continue current therapy follow-up in 4 months Not available 10/03/2023 14:14:20 Plan of Treatment Reminders Order Date Submit Date Provider Last Modified By Organization Details Last Modified Time Details Appointments None recorded . Lab PSA, serum or plasma 023 10/02/20 23 [facility], [address] [place] [address], [address], 4 18:48:41 HbA1c (hemoglo bin A1c), blood 023 10/02/20 23 [email or web address] [facility], [address] [place] [address] 2, [place], [address], 4 18:48:40 CBC w/ auto diff 023 10/02/20 23 [facility], [address] [place] [address] [facility] 2, [place], [address], 4 18:48:40 lipid panel, serum 023 10/02/20 23 [email or web address] [facility], [address] [facility] 2, [place], [address], 4 18:48:40 CMP, serum or plasma 023 10/02/20 23 [facility], [address] [facility] 2, [place], [address], 4 18:48:41 Referral None recorded . Procedures None recorded . Surgeries None recorded . Imaging None recorded . Medication Orders None recorded . Patient TargetsNo targets recorded. Patient InstructionsNo instructions recorded. Reason for Referral None Reported. Results Created Date Observation Date Name Description Value Unit Range Abnormal Flag Note LastModifiedBy Organization Detail LastModifiedTime 11/28/19 23 11/28/2022 gluco se, finge rstic k, blood Blood Glucose: mg/dl 457 Not Available [facility] [address] [place], [place], [address], 11/28/2022 15:31:55 12/05/19 23 12/05/2022 gluco se, finge rstic k, blood Blood Glucose: mg/dl 462 Not Available [facility] [address] [place], [place], [address], 12/05/2022 12:04:47 01/02/20 23 01/02/2023 gluco se, finge rstic k, blood Blood Glucose: mg/dl 119 Not Available [facility] [address] [place], [place], [address], 01/02/2023 12:39:25 Result Notes None recorded. Problems Name Problem SNOMED Code Status Onset Date Resolution Date Notes Provider Name and Address Organization Details Recorded Time Benign essential hypertensi on 1477668 Active Not Available [facility] 3 02:53:26 Microscopi c hematuria 918321826 Active Not Available [facility] 3 02:53:26 Intestinal disacchari dase deficiency 99786074 Active Not Available [facility] 3 02:53:26 Seasonal allergic conjunctiv itis 332513633 Active Not Available [facility] 3 02:53:26 Benign prostatic hyperplasi a 551117790 Active Not Available [facility] 3 02:53:26 Retention of urine 048485079 Active Not Available [facility] 3 02:53:26 Hyperurice tanisha 01843859 Active Not Available [facility] 3 02:53:26 Obesity 465084719 Active 2019 Not Available [facility] 3 02:53:26 Dysuria 77549914 Active 2021 Not Available [facility] 3 02:53:27 Abnormal urine odor 0770909 Active 2021 Not Available [facility] 3 02:53:27 Pain of left hip joint 0799243940078 00 Active 2021 Not Available [facility] 3 02:53:26 Morbid obesity 053731447 Active 2021 Not Available [facility] 3 02:53:26 Osteoarthr itis of left hip joint 9963173272599 08 Active 2021 Not Available [facility] 3 02:53:26 Diabetes mellitus 57818448 Active 2021 Not Available [facility] 3 02:53:27 Type 2 diabetes mellitus 61694159 Active 2022 Not Available [facility] 3 02:53:26 Uncontroll ed type 2 diabetes mellitus 778221277 Active 2022 Not Available [facility] 3 02:53:27 Type 2 diabetes mellitus without complicati on 784997673 Active 2022 Not Available [facility] 3 02:53:26 Essential hypertensi on 65928274 Active 2022 Blu Cristina RN null, [place] [facility] [place] [facility] 3 14:29:48 Problem Notes None recorded. Procedures Surgical History Date Name Laterality Status Provider Name and Address Organization Details Recorded Time 12/17/19 repair of umbilical hernia completed Not Available [facility] 01/22/2023 02:47:42 Colonoscopy completed Not Available [facility] 01/22/2023 02:47:42 Hernia Surgery completed Not Available [facility] 01/22/2023 02:47:42 Imaging Results None recorded. Procedure Notes None recorded. Medical Equipment None Reported. Allergies Allergen ID Allergen Name Allergen Category Reaction Reaction Severity Criticality Documentation Date Start Date Code Code System Note Provider Name and Address Organization Details Recorded Time 4684 Levaquin medicatio n Not available Not available Not available 01/22/2023 03812 2 RxNorm Not Available [facility] 03:00:18 Medications Name Sig Start Date Stop Date Status Note LastModified by Organization Details LastModified Time metformin 500 mg tablet TAKE 1 TABLET TWICE A DAY BY ORAL ROUTE FOR 90 DAYS. 03/27 completed increase d dose Not Available Not Available Not Available clonidine HCl 0.1 mg tablet TAKE 1 TABLET BY MOUTH TWICE A DAY 10/10 completed Not Available Not Available Not Available prednison e 10 mg tablet TAKE 1 TABLET BY MOUTH 3 TIMES A DAY FOR 3 DAYS, 1 TAB 2 TIMES DAILY X2DAYS, 1 TAB ONCE A DAY X1DAY active Not Available Not Available No t Available atorvasta tin 10 mg tablet Take 1 tablet every day by oral route for 90 days. 2022 active Not Available Not Available Not Avai lable prednison e 10 mg tablets in a dose pack Take 1 tab by mouth, 3 times a day for 3 daysTake 1 tab by mouth 2 times a day for 2 daysTake 1 tab by mouth once a day for 1 day 01/02 completed Not Available Not Available Not Available oxycodone -acetamin ophen 5 mg-325 mg tablet TAKE 1 TAB BY MOUTH EVERY DAY EVERY 4-6 HOURS NEEDED active Not Available Not Available No t Available tamsulosi n 0.4 mg capsule TAKE 1 CAPSULE( S) EVERY DAY BY ORAL ROUTE. active Not Available Not Available No t Available OneTouch Ultra Test strips USE 3 TIMES DAILY BEFORE MEALS 2022 active Not Available Not Available Not Avai lable metformin 1,000 mg tablet Take 1 tablet twice a day by oral route. 2022 active Not Available Not Available Not Avai lable Cipro 500 mg tablet Take 1 tablet twice a day by oral route for 7 days. active Not Available Not Available No t Available benazepri l 20 mg tablet Take 1 tablet every day by oral route. 11/28 completed Not Available Not Available Not Available allopurin ol 300 mg tablet TAKE 1 TABLET DAILY active Not Available Not Available No t Available hydrochlo rothiazid e 25 mg tablet TAKE 1 TABLET BY MOUTH EVERY DAY 2022 active Not Available Not Available Not Avai lable levofloxa justin 500 mg tablet TAKE 1 TABLET BY MOUTH EVERY DAY active Not Available Not Available No t Available finasteri de 5 mg tablet TAKE 1 TABLET(S ) EVERY DAY BY ORAL ROUTE. active Not Available Not Available No t Available amlodipin e 10 mg-benaze pril 20 mg capsule TAKE 1 CAPSULE BY MOUTH DAILY 03/27 completed increase d dose Not Available Not Available Not Available nitrofura ntoin monohydra te/macroc rystals 100 mg capsule TAKE 1 CAPSULE BY MOUTH EVERY DAY active Not Available Not Available No t Available amlodipin e 10 mg-benaze pril 40 mg capsule TAKE 1 CAPSULE BY MOUTH DAILY 2022 active Not Available Not Available Not Avai lable BD Ultra-Fin e Original Pen Needle 29 gauge x 1/2 USE DIRECTED EVERY DAY active Not Available Not Available No t Available Suprep Bowel Prep Kit 17.5 gram-3.13 gram-1.6 gram oral solution 01/31 completed Not Available Not Available Not Available Tresiba FlexTouch U-100 insulin 100 unit/mL (3 mL) subcutane ous pen INJECT SUBCUTAN EOUSLY 35 UNITS DAILY 2023 active Not Available Not Available Not Avai lable Fluvirin 8216-4570 45 mcg (15 mcg x 3)/0.5 mL intramusc ular suspensio n ADM 0.5ML IM UTD 12/26 completed Not Available Not Available Not Available Fluvirin 6343-4508 45 mcg (15 mcg x 3)/0.5 mL intramusc ular suspensio n ADM 0.5ML IM UTD 12/25 completed Not Available Not Available Not Available Afluria Quad (PF) 60 mcg (15 mcg x 4)/0.5 mL IM syringe ADM 0.5ML IM UTD 01/28 completed Not Available Not Available Not Available Tresiba U-100 Insulin 100 unit/mL subcutane ous solution Inject 35 units every day by subcutan eous route for 90 days. 2022 active Not Available Not Available Not Avai lable OneTouch Ultra2 Meter DIRECTED active Not Available Not Available No t Available OneTouch Delica Plus Lancet 30 gauge USE DIRECTED TO CHECK BLOOD SUGAR 3 TIMES DAILY 2023 active Not Available Not Available Not Avai lable Flucelvax Quad 60 mcg (15 mcg x 4)/0.5 mL intramusc ular susp ADM 0.5ML IM UTD 01/31 completed Not Available Not Available Not Available Vitals Date Recorded Body mass index (BMI) Body height Oxygen saturation Oxygen saturation in Arterial blood by Pulse oximetry Heart rate Body temperature Body weight Systolic And Diastolic Provider Name and Address Organization Details Last Updated DateTime 3 38.1 kg/m2 180.34 cm 97 % 97 % 89 /min 97.8 [degF] 035465. 72 g 124/80 mm[Hg] Not Available [facility] 3 02:51:08 Date Recorded Body mass index (BMI) Body height Heart rate Body temperature Body weight Systolic And Diastolic Provider Name and Address Organization Details Last Updated DateTime 3 38.2 kg/m2 180.34 cm 83 /min 97.2 [degF] 474918. 31 g 124/84 mm[Hg] Not Available [facility] 3 02:51:08 Date Recorded Body height Body weight Body temperature Heart rate Oxygen saturation Oxygen saturation in Arterial blood by Pulse oximetry Systolic And Diastolic Provider Name and Address Organization Details Last Updated DateTime 3 180.34 cm 404156. 68 g 98.1 [degF] 91 /min 95 % 95 % 134/90 mm[Hg] Madeleine Chavarria RN [place] [facility] 3 11:37:58 Date Recorded Body height Body mass index (BMI) Body weight Body temperature Heart rate Oxygen saturation Oxygen saturation in Arterial blood by Pulse oximetry Systolic And Diastolic Provider Name and Address Organization Details Last Updated DateTime 3 180.34 cm 39.1 kg/m2 110175. 86 g 98.3 [degF] 90 /min 97 % 97 % 124/88 mm[Hg] Madeleine Chavarria RN [facility] [email or web address] [facility] 3 11:50:19 Date Recorded Body height Body mass index (BMI) Body weight Body temperature Heart rate Systolic And Diastolic Provider Name and Address Organization Details Last Updated DateTime 3 180.34 cm 39.9 kg/m2 033471. 42 g 97.8 [degF] 88 /min 132/80 mm[Hg] Johana Marshall MA [facility] [email or web address] [facility] 3 11:48:11 Social History Question Answer Notes LastModified by Organizat ion Details LastModified Time Tobacco Smoking Status Never Smoker Not Available [facility] 01/22/2023 02:42:13 Do You Have An Advance Directive? No MIGRATION.05675 28787 Information not available 01/22/2023 Do You Wear A Helmet When Biking? No MIGRATION.79725 25131 Information not available 01/22/2023 Are You Blind Or Do You Have Difficulty Seeing? No MIGRATION.95098 71574 Information not available 01/22/2023 What Is Your Level Of Caffeine Consumption? Occasional MIGRATION.47963 50674 Information not available 01/22/2023 How Much Tobacco Do You Chew? None MIGRATION.67818 16777 Information not available 01/22/2023 In The 14 Days Before Symptom Onset, Have You Had Close Contact With A Laboratory-confi rmed COVID-19 While That Case Was Ill? No MIGRATION.19229 17767 Information not available 01/22/2023 In The 14 Days Before Symptom Onset, Have You Had Close Contact With A Person Who Is Under Investigation For COVID-19 While That Person Was Ill? No MIGRATION.08541 16107 Information not available 01/22/2023 Are You Deaf Or Do You Have Serious Difficulty Hearing? No MIGRATION.16360 01679 Information not available 01/22/2023 What Type Of Diet Are You Following? REGULAR MIGRATION.56756 88228 Information not available 01/22/2023 Which Illicit Or Recreational Drugs Have You Used? None MIGRATION.30196 73863 Information not available 01/22/2023 What Is The Highest Grade Or Level Of School You Have Completed Or The Highest Degree You Have Received? [id number] MIGRATION.32172 45957 Information not available 01/22/2023 How Many Days Of Moderate To Strenuous Exercise, Like A Brisk Walk, Did You Do In The Last 7 Days? 5 MIGRATION.93823 31781 Information not available 01/22/2023 On Those Days That You Engage In Moderate To Strenuous Exercise, How Many Minutes, On Average, Do You Exercise? 45 MIGRATION.02999 56767 Information not available 01/22/2023 Have There Been Any Changes To Your Family Or Social Situation? No MIGRATION.20081 10494 Information not available 01/22/2023 What Is The Fluoride Status Of Your Home? Unknown MIGRATION.46521 18632 Information not available 01/22/2023 Are There Any Guns Present In Your Home? No MIGRATION.55931 10028 Information not available 01/22/2023 Do You Use Insect Repellent Routinely? No MIGRATION.53040 75343 Information not available 01/22/2023 Where Do You Live? [facility] MIGRATION.77463 55260 Information not available 01/22/2023 Do You Have A Medical Power Of Tool Technician? No MIGRATION.54719 94200 Information not available 01/22/2023 What Was The Date Of Your Most Recent Tobacco Screening? 10/02/2023 [email or web address] Information not available 10/02/2023 Have You Ever Been Counseled For Unhealthy Alcohol Use? No MIGRATION.17139 58648 Information not available 01/22/2023 Do You Have Any Pets? No MIGRATION.82864 37503 Information not available 01/22/2023 What Is Your Relationship Status? MIGRATION.72263 99982 Information not available 01/22/2023 Do You Use Your Seat Belt Or Car Seat Routinely? Yes MIGRATION.36165 31265 Information not available 01/22/2023 Do You Have Smoke And Carbon Monoxide Detectors In Your Home? Yes MIGRATION.79594 98751 Information not available 01/22/2023 Are You Passively Exposed To Smoke? No MIGRATION.56451 41312 Information not available 01/22/2023 Are There Any Smokers In Your House? No MIGRATION.66465 07833 Information not available 01/22/2023 How Much Tobacco Do You Smoke? No MIGRATION.18843 71683 Information not available 01/22/2023 What Types Of Sporting Activities Do You Participate In? None MIGRATION.24799 81191 Information not available 01/22/2023 Do You Use Sunscreen Routinely? No MIGRATION.29507 38028 Information not available 01/22/2023 Has Tobacco Cessation Counseling Been Provided? No Not Needed-ne ramon Smoked MIGRATION.64486 87318 Information not available 01/22/2023 Have You Recently Traveled Abroad? No MIGRATION.12467 29784 Information not available 01/22/2023 Do You Have Difficulty Walking Or Climbing Stairs? No MIGRATION.62874 04159 Information not available 01/22/2023 Do You Have Any Dietary Restrictions? No MIGRATION.90232 13001 Information not available 01/22/2023 Sex: Male Functional Status Question Answer Note LastModified by [employer] ion Details LastModified Time Do you use any illicit or recreational drugs? No MIGRATION.05786 54594 Information not available 01/22/2023 Do you or have you ever used any other forms of tobacco or nicotine? No MIGRATION.85984 07043 Information not available 01/22/2023 What is your level of alcohol consumption? Occasional MIGRATION.50107 89868 Information not available 01/22/2023 Do you or have you ever used smokeless tobacco? Never used smokeless tobacco MIGRATION.58759 09373 Information not available 01/22/2023 Are you currently employed? No [place] [address] Information not available 03/27/2023 Do you have transportation difficulties? No MIGRATION.63537 50548 Information not available 01/22/2023 Are you able to walk? [place]WOREST MIGRATION.08220 99017 Information not available 01/22/2023 Do you have difficulty doing errands alone? No MIGRATION.77127 21926 Information not available 01/22/2023 Are you able to care for yourself? Yes MIGRATION.08374 93066 Information not available 01/22/2023 Do you have difficulty dressing or bathing? No MIGRATION.28069 35747 Information not available 01/22/2023 Do you or have you ever used e-cigarettes or vape? Never used electronic cigarettes MIGRATION.56409 11517 Information not available 01/22/2023 What is your exercise level? Moderate MIGRATION.55429 17296 Information not available 01/22/2023 Mental Status Question Answer Note LastModified by [employer] ion Details LastModified Time Do you feel stressed (tense, restless, nervous, or anxious, or unable to sleep at night)? GH29981-3 MIGRATION.35855156 26 Information not available 01/22/2023 Do you have difficulty concentrating, remembering or making decisions? No MIGRATION.45222888 26 Information not available 01/22/2023 Family History Relationship Description Onset Age of this Age Resolved Age Notes LastModified by Organization Details LastModified Time Mother Diabetes mellitus MIGRATION.449 [id number] Not available 01/22/2023 02:47:46 Mother Hypertensive disorder MIGRATION.474 [id number] Not available 01/22/2023 02:47:46 Brother Hypertensive disorder MIGRATION.864 [id number] Not available 01/22/2023 02:47:46 Notes:no history of urologic problems, hematuria or cancer Medical History Condition Response NERVE DISEASE N BLINDNESS N CYSTITIS N RHEUMATIC FEVER N KIDNEY STONES N BLADDER PROBLEMS N MRSA N OTHER # 1 N POLIO N LUNG DISEASE/DISORDER N RADIATION / CHEMOTHERAPY N COPD N Other # 2 N BLOOD DISEASES N SURGERY N EAR OR HEARING PROBLEMS N MUMPS N BOWEL PROBLEMS N DEPRESSION (INCLUDING POST ) N STROKE/TIA N ULCERS N BENIGN PROSTATIC HYPERPLASIA Y MEASLES N MYOCARDIAL INFARCTION N OBESITY Y GERD/NAUSEA N ANEURYSM N URINARY/BLADDER/KIDNEY PROBLEMS Y CORONARY ARTERY DISEASE (CAD) N ADDICTION CONCERNS N Impotence N ENDOMETRIOSIS N USE OF BLOOD THINNERS N SKIN PROBLEMS N GASTROINTESTINAL DISORDER N PERIPHERAL VASCULAR DISEASE N MUSCLE,JOINT OR BONE PROBLEMS N GASTROINTESTINAL BLEEDING N BLOOD CLOTS N ASTHMA N CATARACTS N ERECTILE DYSFUNCTION N VARICOSITIES N GI PROBLEMS N Low Testosterone N INFERTILITY N AIDS/HIV N CHEMOTHERAPY / RADIATION N LIVER DISEASE N MALE HYPOGONADISM N HYPERTENSION Y Deficiency Y ANXIETY DISORDER N BLOOD TRANSFUSION N ANEMIA/BLOOD DISORDER N CHRONIC EAR INFECTIONS N BRONCHITIS N TUBERCULOSIS N GLAUCOMA N FOOT PROBLEM N DIVERTICULITIS N SLEEP APNEA N CHICKENPOX N INFECTIOUS DISEASE N PROSTATE N HEART ARRHYTHMIA N INSOMNIA N HIGH CHOLESTEROL / HYPERLIPIDEMIA N EYE PROBLEMS N HYPERTHYROIDISM N NEUROLOGICAL PROBLEMS N EDEMA N CHRONIC PAIN SYNDROME N HYPOTHYROIDISM N CONSTIPATION N CAROTID BLOCKAGE N BACK / NECK PROBLEMS N HAVE YOU BEEN HOSPITALIZED OR SEEN IN [facility] IN THE PAST YEAR ? N ATHEROSCLEROSIS N BREAST PROBLEMS N DIALYSIS N ECZEMA N OSTEOPOROSIS N ARTHRITIS N NO SIGNIFICANT PAST MEDICAL HISTORY N APPENDICITIS N DIABETES, TYPE N BAD TEETH N ENT N HEARTBURN / REFLUX N AUTISM SPECTRUM DISORDER (ASD) N HEPATITIS / LIVER DISEASE N GOUT Y SLEEP DISORDER N ALZHEIMER'S DISEASE N Brain Problems N DEMENTIA N HERPES N SEIZURES/EPILEPSY N HEADACHES/MIGRAINES Y VASCULAR DISEASE N PACEMAKER N Blood Disorder N DIZZINESS N HEART DISEASE/HEART PROBLEMS N KIDNEY DISEASE N MULTIPLE SCLEROSIS N CANCER: SPECIFY N CARDIAC ARRHYTHMIA N ATRIAL FIBRILLATION N Gall Stones N PULMONARY EMBOLISM N AUTOIMMUNE DISEASE N Immunizations Vaccine Type Date Status Note Provider Nam e and Address Organization Details Recorded Time COVID-19, mRNA, LNP-S, PF, 30 mcg/0.3 mL dose 1 completed Not Available [facility] 01/22/2023 03:00:07 COVID-19, mRNA, LNP-S, PF, 30 mcg/0.3 mL dose 1 completed Not Available [facility] 01/22/2023 03:00:07 Influenza, split virus, quadrivalent, preservative 9 completed Not Available [facility] 01/22/2023 03:00:07 Influenza, split virus, quadrivalent, preservative 8 completed Not Available [facility] 01/22/2023 03:00:07 Influenza, split virus, quadrivalent, preservative 7 completed Not Available [facility] 01/22/2023 03:00:07 Influenza, split virus, quadrivalent, preservative 6 completed Not Available [facility] 01/22/2023 03:00:07 Influenza, split virus, quadrivalent, PF 2 completed Not Available [facility] 01/22/2023 03:00:07 Past Encounters Encounter ID Performer Location Encounter Start Date Encounter Closed Date Diagnosis/Indication Diagnosis SNOMED-CT Code Diagnosis ICD10 Code Diagnosis Note [id number] Hung Chung MD [facility] Internal Med [place] [address] [place] [address] 02/20/2021 00:00:00 03/10/2021 15:33:52 [id number] Hung Chung MD [facility] Internal Med [place] [address] [facility] [place] [address] 06/19/2021 00:00:00 06/19/2021 20:48:22 [id number] Hung Chung MD [facility] Internal Med [place] [address] [facility] y , [place] [address] 10/23/2021 00:00:00 10/24/2021 23:49:36 [id number] Hung Chung MD [facility] Internal Med [place] [address] [facility] y [address], [place] [address] 11/20/2021 00:00:00 11/22/2021 12:55:22 [id number] Momo saravia MD [facility] General Surgery [address], [facility] [address] [place] [address] 12/04/2021 00:00:00 12/25/2021 11:50:34 [id number] Momo saravia MD [facility] General Surgery [address] [facility], [facility] [address] [place] [address] 01/01/2022 00:00:00 01/01/2022 12:29:03 [id number] Hung Chung MD [facility] Internal Med [place] [address] [facility] y , [place] [address] 02/12/2022 00:00:00 03/09/2022 10:56:57 [id number] Hung Chung MD [facility] Internal Med [place] [address] [facility] [address] , [place] [address] 06/18/2022 00:00:00 06/18/2022 22:33:55 [id number] Duglas Marroquin NP [facility] [address] [facility] [address] [place] [address] 07/08/2022 00:00:00 07/08/2022 12:36:15 [id number] Hung Chung MD [facility] Internal Med [place] [address] [facility] [address] , [place] [address] 10/08/2022 00:00:00 10/08/2022 21:23:16 [id number] Ralph Floyd MD [facility] [place] [address] [facility] [address] [place] [address] 10/22/2022 00:00:00 10/22/2022 16:12:01 [id number] Ralph Floyd MD [facility] [place] [address] [facility] [address] [place] [address] 11/19/2022 00:00:00 11/19/2022 15:24:00 [id number] Hung Chung MD [facility] Internal Med [place] [address] [place] [address] y , [place] [address] 11/28/2022 00:00:00 11/28/2022 23:43:04 [id number] Hung Chung MD [facility] Internal Med [place] [address] [place] [address] y , [place] [address] 12/05/2022 00:00:00 12/05/2022 23:53:07 [id number] QUINN Garvin [facility] Internal Med [place] [address] [facility] [address] [place] [address] 2022 00:00:00 12/24/2022 00:26:02 [id number] Hung Chung MD [facility] Internal Med [place] [address] [place] [address] y , [place] [address] 01/02/2023 00:00:00 01/02/2023 13:46:05 [id number] Hung Chung MD [facility] [facility] [place] [address] [place] [address] [place] [address] 03/27/2023 11:27:29 03/27/2023 12:39:19 Uncontrolled type 2 diabetes mellitus 733746301 E11.65 Obesity [id number] E66.9 Benign ess ential hypertension [id number] I10 [id number] Hung Chung MD [facility] [place] [address] [facility] [place] [address] 06/12/2023 11:44:36 06/12/2023 12:33:44 Uncontrolled type 2 diabetes mellitus [id number] E11.65 Benign ess ential hypertension [id number] I10 Morbid obesity [id number] E66.01 [id number] Hung Chung MD [facility] [place] [address] [facility] , [place] [address] 10/02/2023 11:34:23 10/02/2023 12:50:34 Uncontrolled type 2 diabetes mellitus [id number] E11.65 Benign ess ential hypertension [id number] I10 Screening for malignant neoplasm of prostate [id number] Z12.5 Obesity [id number] E66.9 Health Concerns Section Related Observation LastModified by Organization Detai ls LastModified Time None Recorded Concern Status LastModified by Organization Details LastModified Time None Recorded Advance Directives Directive N: Payers Insurance Date Sequence Insurance Name Policy Number Policy Hodges Covered Member ID Hodges Member ID Guarantor Name 10/06/2023 1 [facility] (MEDICARE REPLACEMENT/A DVANTAGE - HMO) [id number] Regino Stephenson [id number] Regino Stephenson Notes Date Note Type Note Provider Name and Address Organization Details Recorded Time 2022 text/html DiabetesReported bypatient.Duration:new onset Control:home blood sugar range high Compliance:compliant with medications; compliant with follow-up visits Self Care:monitoring glucose 2 times per day Context:checking feet regularly;not seeing eye doctor yearly;home blood sugar range high Associated Symptoms:no sweats; no headaches; no confusion; no increased appetite;weight loss ( lbs);increased thirst;increased urination;blurred vision;blurred visionNotes:a1c 11.2%, fasting glucose last check in office [address] Chung office. Tresiba has been given and needs demo and discussion. Not Available [facility] 12/24/2022 00:26:02 03/27/2023 text/html Diabetes blood s ugars are doing better some of them were close to 70 in maybe symptomatic at timesHypertension no headache no dizzinessObesity trying to lose weight Hung Chung MD [address] [facility], [facility] [address], [place], [address], [employer] 03/29/2023 17:02:04 06/12/2023 text/html Obesity better diabetes sugars look great hypertension no headache no dizziness Hung Chung MD [address], [place], [address], [facility] 06/13/2023 17:53:50 10/02/2023 text/html Obesity better diabetes sugars look great hypertension no headache no dizziness Hung Chung MD [address], [place], [address], [facility] 10/03/2023 14:14:47
== END 2025-06-16 07:21 | disposition home or self-care (01) ==
PROVIDERS: PCP Internal Medicine; Visit Provider Nurse Practitioner Family
DX: R31.29 Other microscopic hematuria (principal); N28.1 Cyst of kidney, acquired; E27.9 Disorder of adrenal gland, unspecified; N40.0 Benign prostatic hyperplasia without lower urinary tract symptoms
CPT/HCPCS: 74178; Q9967

== ENCOUNTER 2025-06-28 08:32 | Outpatient (CLI) | payer MEDICARE, SELFPAY ==
--- NOTE | 2025-06-28 | EST_ITS ---
Patient Info Name: Region Stephenson Age: 69 years : 1955 Gender: Male Ht: 71 in Wt: 272 lbs BSA: 2.53 m2 Exam Date: 06/28/2025 8:42 AM Patient Status: O Admit Date: 06/28/2025 Exam Type: CA stress albert w NM A regadenoson stress test was performed. Staff Referring Physician: Hung Chung Attending Provider: Hung Chung Exercise Technologist: Yvonne Montero Exercise Physician: Benedicto Millard DO Summary 1. 1. Negative lexiscan stress test for ischemic ST changes by ECG criteria. 2. 2. Baseline hypertension. 3. 3. Nuclear scan to follow and will be reported separately. Please correlate with it. 4. 4. Patient informed of the above results. Protocol: Lexiscan Stress ECG Details Stage: REST Duration (min): 0 min : 53 sec HR (bpm): 71 SBP (mmHg): 136 DBP (mmHg): 104 Stage: REST Duration (min): 4 min : 2 sec HR (bpm): 67 SBP (mmHg): 136 DBP (mmHg): 104 Stage: STAGE 1 Duration (min): 0 min : 59 sec HR (bpm): 80 SBP (mmHg): 136 DBP (mmHg): 104 Stage: RECOVERY Duration (min): 1 min : 0 sec HR (bpm): 90 SBP (mmHg): 153 DBP (mmHg): 107 Stage: RECOVERY Duration (min): 2 min : 0 sec HR (bpm): 80 SBP (mmHg): 146 DBP (mmHg): 105 Stage: RECOVERY Duration (min): 3 min : 0 sec HR (bpm): 81 SBP (mmHg): 144 DBP (mmHg): 106 Stage: RECOVERY Duration (min): 3 min : 5 sec HR (bpm): 82 SBP (mmHg): 144 DBP (mmHg): 106 Rest HR: 67 bpm Peak HR: 90 bpm Rest Sys BP: 136 mmHg Peak Sys BP: 153 mmHg Max Pred HR: 153 bpm % Max Pred HR: 59 % Target HR: 130 bpm Max RPP: 13,770 bpm*mmHg Termination Reason: Completed protocol Cardiac Symptoms: Shortness of breath Total Time: 1 min : 0 sec Rest Hines BP: 104 mmHg Peak Hines BP: 107 mmHg Total Dose: 0.4 mg Resting ECG Sinus rhythm. Stress ECG No ST changes. Arrhythmias None. Report Signatures
--- NOTE | 2025-06-28 | ECHO_ITS ---
Patient Info Name: Regino Stephenson Age: 69 years : 1955 Gender: Male Ht: 71 in Wt: 272 lbs BSA: 2.53 m2 HR: 71 bpm BP: 154 / 109 mmHg Technical Quality: Good Exam Date: 06/28/2025 9:01 AM Patient Status: O Admit Date: 06/28/2025 Exam Type: CA echo doppler color flow Complete two-dimensional, color flow and Doppler transthoracic echocardiogram is performed. Staff Referring Physician: uHng Chung Mechanical Handyman: Eli Schneider Attending Provider: Hung Chung Summary 1. Complete two-dimensional, color flow and Doppler transthoracic echocardiogram is performed. 2. Left ventricular systolic function is normal, estimated at 60-65. 3. There is mildly increased left ventricular wall thickness. 4. The left ventricular diastolic function is grade I diastolic dysfunction. 5. There is mild mitral valve regurgitation. 6. There is trace tricuspid valve regurgitation. 7. No pulmonary hypertension, estimated pulmonary arterial systolic pressure is 28 mmHg. Left Ventricle Left ventricular chamber dimension is normal. Left ventricular systolic function is normal, estimated at 60-65. There is mildly increased left ventricular wall thickness. Left ventricular septal wall motion is normal. The left ventricular diastolic function is grade I diastolic dysfunction. Right Ventricle Right ventricular chamber dimension is normal. Right ventricular systolic function is normal. Left Atria Left atrial chamber dimension is normal. Right Atria Right atrial chamber dimension is normal. Aortic Valve The aortic valve is trileaflet. There is no aortic valve sclerosis. There is no aortic valve stenosis. There is no aortic valve regurgitation. Pulmonic Valve The pulmonic valve is normal. There is no pulmonic valve stenosis. There is no pulmonic regurgitation. Mitral Valve The mitral valve has normal leaflets. There is no mitral valve stenosis. There is mild mitral valve regurgitation. Tricuspid Valve The tricuspid valve leaflets are normal. There is no significant tricuspid valve stenosis. There is trace tricuspid valve regurgitation. No pulmonary hypertension, estimated pulmonary arterial systolic pressure is 28 mmHg. Pericardium/Pleural The pericardium appears normal. There is no pericardial effusion. Inferior Vena Cava Normal inferior vena cava with >50% collapse upon inspiration consistent with normal right atrial pressure, 5 mmHg. Aorta The aortic root size at the sinus of Valsalva is normal. The prox ascending aorta size is normal. Left Ventricular Outflow Tract Name Value Normal LVOT 2D LVOT Diameter 2.1 cm LVOT Doppler LVOT Peak Velocity 124 cm/s LVOT Peak Gradient 6 mmHg LVOT Mean Gradient 3 mmHg LVOT VTI 26 cm LVOT Stroke Volume 87 ml LVOT CO 6.2 l/min LVOT CI 2.5 l/min/m2 Pulmonic Valve Name Value Normal RVOT Doppler RVOT Peak Velocity 67 cm/s RVOT Peak Gradient 2 mmHg PV Doppler PV Peak Velocity 118 cm/s PV Peak Gradient 6 mmHg Mitral Valve Name Value Normal MV Diastolic Function MV E Peak Velocity 52 cm/s MV A Peak Velocity 82 cm/s MV E/A 0.6 MV Decel Time (PW) 562 ms MV Annular TDI MV E/e' (Septal) 11.8 MV E/e' (Lateral) 7.2 MV E/e' (Average) 9.5 Tricuspid Valve Name Value Normal TV Regurgitation Doppler TR Peak Velocity 242 cm/s TR Peak Gradient 23 mmHg Estimated PAP/RSVP RA Pressure 5 mmHg <=5 PA Systolic Pressure 28 mmHg <36 RV Systolic Pressure 28 mmHg <36 Aortic Valve Name Value Normal AV Doppler AV Peak Velocity 130 cm/s AV Peak Gradient 7 mmHg AV Area (Cont Eq Jean Paul) 3.3 cm2 AV DI (Jean Paul) 0.95 AV Regurgitation 2D LVOT Area 3.4 cm2 Ventricles Name Value Normal LV Dimensions 2D/MM IVS Diastolic Thickness (2D) 1.2 cm 0.6-1.0 LVID Diastole (2D) 5.1 cm 4.2-5.8 LVIW Diastolic Thickness (2D) 0.9 cm 0.6-1.0 LVID Systole (2D) 3.2 cm 2.5-4.0 LVOT Diameter 2.1 cm LV Mass (2D Cubed) 206.76 g 88.00-224.00 LV Mass Index (2D Cubed) 82 g/m2 49-115 Relative Wall Thickness (2D) 0.37 <=0.42 LV Fractional Shortening/Ejection Fraction 2D/MM LV Fractional Shortening (2D) 37 % 25-43 LV EF (2D Teichholz) 67 % LV Diastolic Volume (4C MOD) 123 ml LV EF (4C MOD) 59 % LV Diastolic Volume (2C MOD) 130 ml LV EF (2C MOD) 63 % LV Diastolic Volume (BP MOD) 127 ml 62-150 LV Diastolic Volume Index (BP MOD) 50 ml/m2 34-74 LV Systolic Volume (BP MOD) 50 ml 21-61 LV Systolic Volume Index (BP MOD) 20 ml/m2 11-31 LV EF (BP MOD) 61 % 52-72 LV Diastolic Length (4C) 9.7 cm LV Systolic Length (4C) 8.7 cm LV Stroke Volume (4C MOD) 72 ml Atria Name Value Normal LA Dimensions LA Volume (4C A-L) 28 ml LA Volume (BP A-L) 43 ml RA Dimensions RA Systolic Major [place] Length (4C) 6.2 cm 2.1-2.7 RA Area (4C) 13.5 cm2 <=18.0 Report Signatures
--- NOTE | ~2025-06-28 | NM_ITS ---
EXAMINATION: NM albert stress w perfusion DATE: 06/28/2025 11:09 INDICATION: Abnormal EKG TECHNIQUE: Rest images were obtained following intravenous administration of 10.6 mCi Tc99m tetrofosm in (Myoview). The patient was infused intravenously with Lexiscan (Regadenoson). Then, 35.7 mCi Tc99m tetrofosmin (Myoview) was administered intravenously, and stress images were obtained. Data was margaret nstructed into short axis and horizontal and vertical long axis SPECT images. Gated SPECT images were also obtained. COMPARISON: None. FINDINGS: There is no definite reversible or fixed perfusion abnormality to suggest ischemia or infar ction. There is normal left ventricular chamber size, wall motion and ejection fraction. Left ventr icular ejection fraction measures 60%. IMPRESSION: 1. Normal myocardial perfusion at rest and during stress. 2. Left ventricular ejection fraction measuring 60%. Reviewed, dictated and finalized at location A.
== END 2025-06-28 08:33 | disposition home or self-care (01) ==
PROVIDERS: PCP Internal Medicine; Visit Provider Internal Medicine
DX: R94.31 Abnormal electrocardiogram [ECG] [EKG] (principal)
CPT/HCPCS: 78452; 93017; 93306; A9502; J2785

== ENCOUNTER 2025-07-29 15:44 | Outpatient (CLI) | payer MEDICARE, SELFPAY ==
--- OUTSIDE RECORDS SUMMARY | 2007-06-06 03:19 | XMS_ITS | Continuity of Care Document ---
Author Organization [facility] Address [address] [address] [address] utive [facility] [address] [place] [address] Phone Care Team Providers Care Staff Research Scientist Name Role Phone Rowe OD, Manjeet Unavailable Unavailable Procedures Procedure Date Office/outpatient Visit, Est Advance Directives Directive Yes / No Effective Date File Name No Information Encounters Encounter Description Practice Location Reason(s) For Visit Diagnoses Date Provider Providers Copied on Encounter Office/outpat ient Visit, Est [facility], [address], [place], [place], [id number], [place] tel:[phone] [facility] No Information 4-200 7 Rowe OD Manjeet. [address] , [address], [place], [address], [place]. tel:[phone] Family History Family Member Type Diagnosis Age At Onset No Information Payers Payer name Insurance type Covered constitution party ID Authoriza timike(s) [facility] Commercial CI [id number] Social History Type Description Quantity Date Captured Comments Sex Male Smoking Status No Information Chief Complaint And Reason For Visit No Information Reason For Referral Reason For Referral No Information History Of Present Illness Encounter Date Complaint History Of Prese nt Illness No Information Functional Status Date Functional Assessmen t No Information Instructions Date Instruction Additional Infor mation No Information Assessments Type Assessment Date No Information Patient Care Teams Name Effective Dates (start - stop) Status Members No Information
--- OUTSIDE RECORDS SUMMARY | 2025-06-17 07:27 | XMS_ITS | Continuity of Care Document ---
Author Organization [facility] Address [address] [place] [address] Phone Care Team Providers Care Manual Writer Name Role Phone Edgard OZUNA, FACC, Unavailable Unavailabl e Advance Directives Directive Yes / No Effective Date File Name No Information Encounters Encounter Description Practice Location Reason(s) For Visit Diagnoses Date Provider Providers Copied on Encounter [facility] , [address] [place] [address], [id number], tel:[phone] [facility] [place] No Information Edgard Hakeem. [address] [place] [address], [id number], [place]. tel:[phone] Family History Family Member Type Diagnosis Age At Onset No Information Payers Payer name Insurance type Covered republican ID Authoriza tion(s) No Information Social History Type Description Quantity Date Captured [...]
--- NOTE | ~2025-07-29 | MR_ITS ---
EXAMINATION: MR abdomen wo/w con DATE: 07/29/2025 16:55 INDICATION: Disorder of adrenal gland, unspecified. TECHNIQUE: Magnetic resonance imaging (MRI) of the abdomen was performed without and with 20 mL MultiHance intravenous contrast. COMPARISON: CT abdomen and pelvis 06/16/2025 FINDINGS: The liver, gallbladder, spleen, pancreas, and right adrenal gland are normal. There is a 3.5 cm mass in left adrenal gland containing microscopic fat, consistent with an adenoma. There is a 7 mm cyst in right kidney. Left kidney is normal. There are no dilated loops of bowel. There is no ascites. There are no pathologically enlarged lymph nodes. IMPRESSION: 1. Left adrenal adenoma. Reviewed, dictated and finalized at location E. IMPRESSION: 1. Left adrenal adenoma.
== END 2025-07-29 15:45 | disposition home or self-care (01) ==
PROVIDERS: PCP Internal Medicine; Visit Provider Nurse Practitioner Family
DX: E27.9 Disorder of adrenal gland, unspecified (principal)
CPT/HCPCS: 74183; A9577